=== PATIENT | female | born 1945 | race Caucasian/White ===

== ENCOUNTER 2022-03-16 17:47 | Emergency (ER) | payer MEDICARE ==
[~2022-03-16] VITALS: Ht 162.6 cm; Wt 90.3 kg
[~2022-03-16 17:47] MED LIST: Aspir 8181 MG PO; DICLOFENAC SOD100 G1 TP; DULO60 PO; GABA100 PO; METO25ER PO; NYAMYC15 G1 TOP; OMEGA-3 FISH O1 EAC6 PO; ROPINIROLE HCL PO; Toviaz4 MG PO; Ventolin/Prove6.7 GM INH; ZYRTEC10 M2 PO
[2022-03-16 18:42] LABS: BASOPHILS ABSOLUTE AUTO 0.03 K/mm3 (0.00-0.23); BASOPHILS PERCENT AUTO 1 % (0-2); EOSINOPHILS ABSOLUTE AUTO 0.08 K/mm3 (0.00-0.68); EOSINOPHILS PERCENT AUTO 1 % (0-6); Hemoglobin 9.3 g/dL (11.5-16.0); IMMATURE GRAN ABSOLUTE AUTO 0.01 K/mm3 (0.00-0.10); IMMATURE GRAN PERCENT AUTO 0 % (0-1); LYMPHOCYTES ABSOLUTE AUTO 1.88 K/mm3 (0.84-5.20); LYMPHOCYTES PERCENT AUTO 32 % (21-46); MONOCYTES ABSOLUTE AUTO 0.86 K/mm3 (0.16-1.47); MONOCYTES PERCENT AUTO 14 % (4-13); Mean Corpuscular HGB 28.3 pg (26.0-34.0); Mean Corpuscular HGB Conc 32.1 g/dL (31.5-36.5); Mean Corpuscular Volume 88 fL (80-100); Mean Platelet Volume 10.6 fL (9.1-12.4); NEUTROPHILS ABSOLUTE AUTO 3.11 K/mm3 (1.96-9.15); NEUTROPHILS PERCENT AUTO 52 % (41-73); Platelet Count 221 K/mm3 (150-400); RDW Coefficient Variation 14.7 % (11.7-14.2); RDW Standard Deviation 47.6 fL (35.1-46.3); Red Blood Cell Count 3.29 M/mm3 (3.80-5.20); White Blood Cell Count 5.97 K/mm3 (4.00-11.30)
[2022-03-16 19:24] LABS: Albumin, Blood 2.8 g/dL (3.4-5.0); Albumin/Globulin Ratio 0.7 (0.8-1.8); Bilirubin, Total 0.4 mg/dL (0.1-1.0); Bun/Creatinine Ratio 25.4 (12.0-20.0); Creatinine, Blood 1.14 mg/dL (0.40-1.00); Potassium, Blood 4.5 mmol/L (3.5-5.5); Total Protein, Blood 6.8 g/dL (6.4-8.2)
== END 2022-03-16 19:55 | disposition home or self-care (01) ==
LOC: ER 17:47
PROVIDERS: Physician Assistant
DX: R00.2 Palpitations (principal); I25.2 Old myocardial infarction; Z88.8 Allergy status to other drugs, medicaments and biological substances; Z79.82 Long term (current) use of aspirin; Z79.899 Other long term (current) drug therapy
CPT/HCPCS: 71046; 80053; 83690; 83880; 84484; 85025; 93005; 93010

== ENCOUNTER → 2022-03-30 | Outpatient (CLI) | payer MEDICARE ==
[2022-04-01 10:04] LABS: Stool Occult Blood Guaiac 1 Neg (Neg)
== END | disposition home or self-care (01) ==
LOC: LAB SHORT 19:00
PROVIDERS: Internal Medicine Nephrology
DX: N18.30 Chronic kidney disease, stage 3 unspecified (principal); D63.1 Anemia in chronic kidney disease
CPT/HCPCS: 82270

== ENCOUNTER 2022-04-27 16:49 | Inpatient (IN) | payer MEDICARE ==
[~2022-04-27] VITALS: Ht 162.6 cm; Wt 93.7 kg
[2022-04-27] MEDS ORDERED: FERSU300 PO (17:16)
[2022-04-27] MEDS ORDERED: FUROSEMIDE20 MG PO (17:17)
[2022-04-27] MEDS ORDERED: GABA100 PO (17:18)
[2022-04-27] MEDS ORDERED: GALANTAMINE ER24 M3 PO (17:18)
[2022-04-27] MEDS ORDERED: LORCET 5-325 M1 EACH PO (17:19)
[2022-04-27] MEDS ORDERED: LISINOPRIL2.5 MG PO (17:20)
[2022-04-27] MEDS ORDERED: ESCI20 PO (17:20)
[2022-04-27] MEDS ORDERED: METHIMAZOLE5 M1 PO (17:21)
[2022-04-27] MEDS ORDERED: ROSUVASTATIN CA20 MG PO (17:22)
[2022-04-27] MEDS ORDERED: PROLIA60 MG/1 ML SC (17:24)
[2022-04-27] MEDS ORDERED: FLONASE ALLERG9.9 M2 INH (17:25)
[2022-04-27 17:52] LABS: Albumin, Blood 3.3 g/dL (3.4-5.0); Albumin/Globulin Ratio 0.8 (0.8-1.8); Bilirubin, Total 0.2 mg/dL (0.1-1.0); Bun/Creatinine Ratio 26.5 (12.0-20.0); Creatinine, Blood 1.36 mg/dL (0.40-1.00); Potassium, Blood 7.4 mmol/L (3.5-5.5); Total Protein, Blood 7.3 g/dL (6.4-8.2)
[2022-04-27 19:00] LABS: Calcium, Ionized (POC) 1.15 mmol/L (1.10-1.46); Chloride (POC) 114 mmol/L (98-108); Creatinine (POC) 1.5 mg/dL (0.6-1.0); Glucose (ISTAT POC) 74 mg/dL (70-99); Hemoglobin (POC) 11.6 g/dL (12.0-16.0); Potassium (POC) 7.3 mmol/L (3.5-5.5); Sodium (POC) 136 mmol/L (135-148); Total CO2 (POC) 17 mmol/L (21-32)
[2022-04-27 21:09] LABS: BASOPHILS ABSOLUTE AUTO 0.03 K/mm3 (0.00-0.23); BASOPHILS PERCENT AUTO 1 % (0-2); EOSINOPHILS ABSOLUTE AUTO 0.19 K/mm3 (0.00-0.68); EOSINOPHILS PERCENT AUTO 3 % (0-6); Hemoglobin 9.9 g/dL (11.5-16.0); IMMATURE GRAN ABSOLUTE AUTO 0.01 K/mm3 (0.00-0.10); IMMATURE GRAN PERCENT AUTO 0 % (0-1); LYMPHOCYTES PERCENT AUTO 32 % (21-46); MONOCYTES ABSOLUTE AUTO 0.52 K/mm3 (0.16-1.47); MONOCYTES PERCENT AUTO 9 % (4-13); Mean Corpuscular HGB 27.9 pg (26.0-34.0); Mean Corpuscular Volume 93 fL (80-100); Mean Platelet Volume 10.8 fL (9.1-12.4); NEUTROPHILS ABSOLUTE AUTO 3.23 K/mm3 (1.96-9.15); NEUTROPHILS PERCENT AUTO 55 % (41-73); Platelet Count 220 K/mm3 (150-400); RDW Coefficient Variation 15.1 % (11.7-14.2); RDW Standard Deviation 52.1 fL (35.1-46.3); Red Blood Cell Count 3.55 M/mm3 (3.80-5.20); White Blood Cell Count 5.88 K/mm3 (4.00-11.30)
[2022-04-27 21:42] LABS: Thyroid Stimulating Hormone 10.4 uIU/mL (0.360-4.800)
[2022-04-27 21:44] LABS: Bun/Creatinine Ratio 24.4 (12.0-20.0); Calcium, Blood 7.8 mg/dL (8.5-10.1); Creatinine, Blood 1.23 mg/dL (0.40-1.00); Potassium, Blood 6.5 mmol/L (3.5-5.5)
[2022-04-28 02:00] LABS: Creatinine, Blood 1.28 mg/dL (0.40-1.00); Potassium, Blood 6.2 mmol/L (3.5-5.5)
[2022-04-28 05:41] LABS: Bun/Creatinine Ratio 22.8 (12.0-20.0); Calcium, Blood 8.2 mg/dL (8.5-10.1); Creatinine, Blood 1.36 mg/dL (0.40-1.00); Potassium, Blood 5.9 mmol/L (3.5-5.5)
--- NOTE | 2022-04-28 05:42 | NUR ---
SHIFT SUMMARY PATIENT ALERT AND ORIENTED X4. IS INCONTINENT AND USING PURWICK. NEEDS 1 ASSIST WHEN GETTING OUT OF BED. PATIENT HAD A PAUSE LASTING 2.11 SECONDS THIS MORNING. CURRENTLY, HEART RATE IS SINUS GILBERTO IN THE 50'S, BLOOD PRESSURE HYPERTENSIVE IN THE 160'S, PHYSICIAN AWARE. PATIENT DENIES ANY CHEST PAIN/PRESSURE AND SHORTNESS OF BREATH. LUNG SOUNDS CLEAR. PATIENT REPORTS THAT HER RECTUM DOESN'T FULLY CLOSE AND HAS LOOSE STOOLS AT BASELINE. PATIENT'S POTASSIUM IS TRENDING DOWN, TWO ONE TIME DOSES OF 40MG IV LASIX GIVEN PER DR DELUCA. PATIENT SLEPT WELL OVERNIGHT. CALL LIGHT WITHIN REACH.
[2022-04-28 09:15] LABS: Bun/Creatinine Ratio 24.2 (12.0-20.0); Calcium, Blood 8.1 mg/dL (8.5-10.1); Creatinine, Blood 1.32 mg/dL (0.40-1.00); Potassium, Blood 5.9 mmol/L (3.5-5.5)
[2022-04-28 09:22] LABS: Base Excess Venous -9.1 mmol/L; Bicarbonate Venous 17.4 mmol/L (24.0-30.0); PCO2 Venous 40.8 mmHg (38-42); pH Blood Venous 7.25 (7.34-7.37)
[2022-04-28 13:03] LABS: Base Excess Venous -6.1 mmol/L; Bicarbonate Venous 19.7 mmol/L (24.0-30.0); PCO2 Venous 37.6 mmHg (38-42); pH Blood Venous 7.33 (7.34-7.37)
[2022-04-28 13:36] LABS: Albumin, Blood 2.8 g/dL (3.4-5.0); Anion Gap 4 mmol/L (6-16); Blood Urea Nitrogen 32 mg/dL (8-24); Bun/Creatinine Ratio 25.8 (12.0-20.0); CO2, Blood 20 mmol/L (21-32); Calcium, Blood 8.2 mg/dL (8.5-10.1); Chloride, Blood 111 mmol/L (98-108); Creatinine, Blood 1.24 mg/dL (0.40-1.00); Free Thyroxine 0.76 ng/dL (0.70-1.60); Glomerular Filtration Rate 45 (60-); Glucose, Blood 141 mg/dL (70-99); Phosphorus, Blood 2.9 mg/dL (2.5-4.9); Potassium, Blood 5.5 mmol/L (3.5-5.5); Sodium, Blood 135 mmol/L (136-145)
--- NOTE | 2022-04-28 18:41 | NUR ---
PT SUMMARY: PT ALERT AND ORIENTED X4, ABLE TO MAKE NEEDS KNOWN. VITALS HRR SR 60-70'S, DENIES CHEST PAIN/PRESSURE FOR THE SHIFT, BP SYSTOLIC 140'S-160'S, PT TO RESTART HOME BP MEDS TOMORROW STARTED ON HCTZ TODAY AND SYNTHROID, SATS ABOVE 95% ON RA, AFEBRILE. PT HAS BEEN GETTING UP TO THE CHAIR AND COMMODE FOR TOILETING, WORKED WITH PHYSICAL THERAPIST 1PA FOR TRANSFERS. VBG WAS DONE TODAY AM VBG PH WAS 7.25 REPEAT ONE IN PM WENT UP TO 7.33, POTASSIUM STABLE AT 5.5, PT REMAINS ON LOKELMA. PT DENIES ANY PAIN/DISCOMFORT FOR THE REST OF THE SHIFT, RECEVIED PAIN MEDS THIS AM FROM NOC RN AND WAS EFFECTIVE T/O THE DAY. NO OTHER ISSUES ENCOUNTERED. PT NOW IN BED RESTING, REQUESTED NYSTATIN POWDER FOR RASH IN THE PANUS, POWDER ADMINISTERED. CALL LIGHTS IN REACH WILL REPORT TO ONCOMING SHIFT
[2022-04-29 04:15] LABS: BASOPHILS ABSOLUTE AUTO 0.03 K/mm3 (0.00-0.23); BASOPHILS PERCENT AUTO 1 % (0-2); EOSINOPHILS ABSOLUTE AUTO 0.18 K/mm3 (0.00-0.68); EOSINOPHILS PERCENT AUTO 3 % (0-6); Hematocrit 27.6 % (33.0-51.0); Hemoglobin 8.8 g/dL (11.5-16.0); IMMATURE GRAN PERCENT AUTO 0 % (0-1); LYMPHOCYTES ABSOLUTE AUTO 1.82 K/mm3 (0.84-5.20); LYMPHOCYTES PERCENT AUTO 29 % (21-46); MONOCYTES ABSOLUTE AUTO 0.65 K/mm3 (0.16-1.47); MONOCYTES PERCENT AUTO 10 % (4-13); Mean Corpuscular HGB 27.8 pg (26.0-34.0); Mean Corpuscular HGB Conc 31.9 g/dL (31.5-36.5); Mean Platelet Volume 10.1 fL (9.1-12.4); NEUTROPHILS ABSOLUTE AUTO 3.59 K/mm3 (1.96-9.15); NEUTROPHILS PERCENT AUTO 57 % (41-73); Platelet Count 208 K/mm3 (150-400); RDW Coefficient Variation 15.1 % (11.7-14.2); RDW Standard Deviation 48.6 fL (35.1-46.3); Red Blood Cell Count 3.16 M/mm3 (3.80-5.20); White Blood Cell Count 6.27 K/mm3 (4.00-11.30)
[2022-04-29 04:44] LABS: Albumin, Blood 2.6 g/dL (3.4-5.0); Anion Gap 3 mmol/L (6-16); Blood Urea Nitrogen 38 mg/dL (8-24); CO2, Blood 22 mmol/L (21-32); Calcium, Blood 7.9 mg/dL (8.5-10.1); Chloride, Blood 109 mmol/L (98-108); Creatinine, Blood 1.31 mg/dL (0.40-1.00); Glomerular Filtration Rate 42 (60-); Glucose, Blood 109 mg/dL (70-99); Potassium, Blood 5.2 mmol/L (3.5-5.5); Sodium, Blood 134 mmol/L (136-145)
--- NOTE | 2022-04-29 04:55 | NUR ---
SHIFT SUMMARY: At the beginning of shift, patient complained of generalized pain and was noted to be hypertensive. Treated for pain and rechecked BP which came down from the 170s systolic to the 130s. BP tends to run in the 150s even at rest. She slept through most of the night comfortably.
[2022-04-29 05:16] LABS: Mean Corpuscular Volume 87 fL (80-100)
[2022-04-29 07:13] LABS: Base Excess Venous -4.5 mmol/L; Bicarbonate Venous 21.2 mmol/L (24.0-30.0); PCO2 Venous 32.5 mmHg (38-42)
--- NOTE | 2022-04-29 18:52 | NUR ---
END OF SHIFT NOTE PT IS A&O X4. VSS. NORMAL SINUS RHYTHM, HR 70s-90s, SPO2 >92% ON RA, PTS LLE WITH REDNESS NOTED. PARAMETER OUTLINED WITH MARKER AND CLARITA HOSE WAS PLACED. 2+ PITTING EDEMA IN BLE. PT IS RECEIVING NORCO PRN FOR PAIN IN SHOULDERS, BACK, AND LLE WITH PT REPORT OF IMPROVEMENT.
--- NOTE | 2022-04-29 19:59 | NUR ---
ASSUMPTION OF CARE THIS RN ASSUMED CARE OF PATIENT AT 1900. REPORT TAKEN FROM KAM MEDEL. PATIENT ALERT AND ORIENTED FULLY. CALM AND COOPERATIVE WITH CARE. VSS. REPORTS BACK/SHOULDER PAIN CHRONICALLY. HEATING PAD GIVEN TO PATIENT AND MEDICATING PER EMAR. DENIES CHEST PAIN/PRESSURE OR SOB. CLARITA HOSE REMOVED FROM BLE AFTER BEING PUT INTO BED. REDNESS NOTED AND MARKED BY PREVIOUS RN ON LLE; PT REPORTS PAIN AT TIMES IN LLE. PATIENT CALLING APPROPRIATELY AND ABLE TO MAKE NEEDS KNOWN. PUREWICK IN PLACE D/T FREQUENCY/URGENCY AND LASIX ADMINISTRATION. BED IN LOWEST POSITION AND CALL LIGHT WITHIN REACH.
[2022-04-30 04:34] LABS: Hematocrit 26.3 % (33.0-51.0); Hemoglobin 8.4 g/dL (11.5-16.0)
--- NOTE | 2022-04-30 04:51 | NUR ---
SHIFT SUMMARY NO ACUTE CHANGES OVERNIGHT. PATIENT WITH STABLE VITALS. LLE CONTINUES TO BE RED, EDEMATOUS AND PAINFUL TO TOUCH; BILAT CLARITA HOSE IN PLACE. PATIENT GIVEN MILK OF MAG DURING THIS SHIFT D/T NOT HAVING A BOWEL MOVEMENT FOR 2 DAYS. ACTIVE BS IN ALL FOUR QUADRANTS. PATIENT ALERT AND ORIENTED FULLY. ABLE TO MAKE NEEDS KNOWN. PUREWICK IN PLACE DRAINING YELLOW URINE. SBA WITH FWW TO BATHROOM. MEDICATING PER EMAR FOR PAIN. HEATING PADS ON SHOULDER AND BACK. BED IN LOWEST POSITION AND CALL LIGHT WITHIN REACH. THIS RN WILL CONTINUE TO MONITOR UNTIL SHIFT CHANGE AT 0700.
[2022-04-30 05:47] LABS: Albumin, Blood 2.5 g/dL (3.4-5.0); Anion Gap 4 mmol/L (6-16); Blood Urea Nitrogen 40 mg/dL (8-24); Bun/Creatinine Ratio 28.4 (12.0-20.0); CO2, Blood 24 mmol/L (21-32); Calcium, Blood 7.5 mg/dL (8.5-10.1); Chloride, Blood 107 mmol/L (98-108); Creatinine, Blood 1.41 mg/dL (0.40-1.00); Glomerular Filtration Rate 39 (60-); Glucose, Blood 99 mg/dL (70-99); Phosphorus, Blood 2.9 mg/dL (2.5-4.9); Potassium, Blood 4.8 mmol/L (3.5-5.5); Sodium, Blood 135 mmol/L (136-145)
[2022-04-30] MEDS ORDERED: DOXY100 PO (10:20)
[2022-04-30] MEDS ORDERED: HYDCHL25 PO (10:21)
[2022-04-30] MEDS ORDERED: LEVSOD75 PO (10:21)
[2022-04-30] MEDS ORDERED: VISBIOME 112.51 EACH PO (10:22)
--- NOTE | 2022-04-30 12:09 | NUR ---
DISCHARGE HOME PT MEDICAL NO TELE STATUS. A&O X4. VSS. SPO2 > 92% ON RA. PT W/ ORDERS FOR DISCHARGE HOME. MD VILLA W/ LULY FOR PG TO REMAIN IN PLACE UNTIL UPCOMING OUTPT LAB DRAW. DISCHARGE INSTRUCTIONS REVIEWED W/ PT & SENT HOME W/ PT. PT TAKEN OUT BY PCT IN WC @ APPROX 1210.
== END 2022-04-30 12:10 | disposition home or self-care (01) | DRG 641 ==
LOC: ER 16:49 → PCU 20:48
PROVIDERS: Emergency Medicine; Family Medicine; Family Medicine Adult Medicine; Student in an Organized Health Care Education/Training Program; ADMIT Internal Medicine
PROC: 4A133R1 Monitoring of Arterial Saturation, Peripheral, Percutaneous Approach (ICD-10-PCS; principal; 2022-04-27)
DX: E87.5 Hyperkalemia (principal); I13.0 Hypertensive heart and chronic kidney disease with heart failure and stage 1 through stage 4 chronic kidney disease, or unspecified chronic kidney disease; I50.32 Chronic diastolic (congestive) heart failure; L03.116 Cellulitis of left lower limb; L03.115 Cellulitis of right lower limb; R00.1 Bradycardia, unspecified; E03.9 Hypothyroidism, unspecified; G47.33 Obstructive sleep apnea (adult) (pediatric); I48.91 Unspecified atrial fibrillation; F03.90 Unspecified dementia, unspecified severity, without behavioral disturbance, psychotic disturbance, mood disturbance, and anxiety; E87.1 Hypo-osmolality and hyponatremia; D64.9 Anemia, unspecified; E87.4 Mixed disorder of acid-base balance; N18.30 Chronic kidney disease, stage 3 unspecified; M81.0 Age-related osteoporosis without current pathological fracture; F32.A Depression, unspecified; I25.2 Old myocardial infarction; Z88.8 Allergy status to other drugs, medicaments and biological substances; Z79.82 Long term (current) use of aspirin; Z79.899 Other long term (current) drug therapy
CPT/HCPCS: 36415; 71046; 80047; 80048; 80053; 80069; 82803; 83735; 83880; 84439; 84443; 84484; 85014; 85018; 85025; 93005; 93010; 94760; 96374; 96375; 97110; 97162; 97530; 99285-25; A9270; C1751; J0610; J0690; J1650; J1815; J1940; J7040; J7799

== ENCOUNTER → 2022-05-26 | Outpatient (CLI) | payer MEDICARE, OTHER ==
[~2022-05-26] MED LIST changes: +DOXY100 PO; +ESCI20 PO; +FERSU300 PO; +FLONASE ALLERG9.9 M2 INH; +FUROSEMIDE20 MG PO; +GALANTAMINE ER24 M3 PO; +HYDCHL25 PO; +LEVSOD75 PO; +LISINOPRIL2.5 MG PO; +LORCET 5-325 M1 EACH PO; +METHIMAZOLE5 M1 PO; +PROLIA60 MG/1 ML SC; +ROSUVASTATIN CA20 MG PO; +VISBIOME 112.51 EACH PO
[2022-05-26 14:59] LABS: Magnesium, Blood 2.2 mg/dL (1.6-2.4)
[2022-05-26 15:05] LABS: Bun/Creatinine Ratio 26.4 (12.0-20.0); Creatinine, Blood 1.25 mg/dL (0.40-1.00); Potassium, Blood 4.6 mmol/L (3.5-5.5)
== END | disposition home or self-care (01) ==
LOC: LAB 12:55 → LAB SHORT 12:55
PROVIDERS: Family Medicine
DX: N18.9 Chronic kidney disease, unspecified (principal)
CPT/HCPCS: 80048; 83735

== ENCOUNTER 2022-06-27 00:28 | Observation (INO) | payer MEDICARE, OTHER ==
[~2022-06-27] VITALS: Ht 160 cm; Wt 94.9 kg
[2022-06-27 02:06] LABS: BASOPHILS ABSOLUTE AUTO 0.03 K/mm3 (0.00-0.23); BASOPHILS PERCENT AUTO 0 % (0-2); EOSINOPHILS PERCENT AUTO 1 % (0-6); Hematocrit 33.4 % (33.0-51.0); Hemoglobin 10.4 g/dL (11.5-16.0); IMMATURE GRAN ABSOLUTE AUTO 0.11 K/mm3 (0.00-0.10); IMMATURE GRAN PERCENT AUTO 1 % (0-1); LYMPHOCYTES ABSOLUTE AUTO 0.44 K/mm3 (0.84-5.20); LYMPHOCYTES PERCENT AUTO 3 % (21-46); MONOCYTES ABSOLUTE AUTO 0.51 K/mm3 (0.16-1.47); MONOCYTES PERCENT AUTO 3 % (4-13); Mean Corpuscular HGB 27.9 pg (26.0-34.0); Mean Corpuscular HGB Conc 31.1 g/dL (31.5-36.5); Mean Corpuscular Volume 90 fL (80-100); Mean Platelet Volume 11.7 fL (9.1-12.4); NEUTROPHILS ABSOLUTE AUTO 15.08 K/mm3 (1.96-9.15); NEUTROPHILS PERCENT AUTO 93 % (41-73); Platelet Count 148 K/mm3 (150-400); RDW Coefficient Variation 15.3 % (11.7-14.2); RDW Standard Deviation 50.5 fL (35.1-46.3); Red Blood Cell Count 3.73 M/mm3 (3.80-5.20); White Blood Cell Count 16.27 K/mm3 (4.00-11.30)
[2022-06-27 02:34] LABS: Albumin, Blood 3.1 g/dL (3.4-5.0); Albumin/Globulin Ratio 0.8 (0.8-1.8); Bilirubin, Total 0.5 mg/dL (0.1-1.0); Bun/Creatinine Ratio 30.6 (12.0-20.0); Calcium, Blood 8.7 mg/dL (8.5-10.1); Creatinine, Blood 1.11 mg/dL (0.40-1.00); Globulin, Blood 3.7 g/dL (2.2-4.0); Total Protein, Blood 6.8 g/dL (6.4-8.2)
[2022-06-27] MEDS ORDERED: COLCHICINE0.6 MG PO (04:42)
[2022-06-27] MEDS ORDERED: NITR100CA PO (04:43)
[2022-06-27] MEDS ORDERED: FENTANYL1 EA12 TOP (04:45)
[2022-06-27 05:11] LABS: BASOPHILS ABSOLUTE AUTO 0.03 K/mm3 (0.00-0.23); BASOPHILS PERCENT AUTO 0 % (0-2); EOSINOPHILS PERCENT AUTO 1 % (0-6); Hematocrit 28.6 % (33.0-51.0); IMMATURE GRAN ABSOLUTE AUTO 0.07 K/mm3 (0.00-0.10); IMMATURE GRAN PERCENT AUTO 1 % (0-1); LYMPHOCYTES ABSOLUTE AUTO 0.73 K/mm3 (0.84-5.20); LYMPHOCYTES PERCENT AUTO 5 % (21-46); MONOCYTES ABSOLUTE AUTO 0.66 K/mm3 (0.16-1.47); MONOCYTES PERCENT AUTO 5 % (4-13); Mean Corpuscular HGB Conc 31.5 g/dL (31.5-36.5); Mean Corpuscular Volume 89 fL (80-100); Mean Platelet Volume 10.7 fL (9.1-12.4); NEUTROPHILS ABSOLUTE AUTO 12.96 K/mm3 (1.96-9.15); NEUTROPHILS PERCENT AUTO 89 % (41-73); Platelet Count 144 K/mm3 (150-400); RDW Coefficient Variation 15.1 % (11.7-14.2); RDW Standard Deviation 48.6 fL (35.1-46.3); Red Blood Cell Count 3.22 M/mm3 (3.80-5.20); White Blood Cell Count 14.55 K/mm3 (4.00-11.30)
[2022-06-27 05:46] LABS: Albumin, Blood 2.7 g/dL (3.4-5.0); Albumin/Globulin Ratio 0.8 (0.8-1.8); Bilirubin, Total 0.4 mg/dL (0.1-1.0); Bun/Creatinine Ratio 32.1 (12.0-20.0); Calcium, Blood 8.3 mg/dL (8.5-10.1); Creatinine, Blood 1.12 mg/dL (0.40-1.00); Globulin, Blood 3.2 g/dL (2.2-4.0); Potassium, Blood 4.1 mmol/L (3.5-5.5); Total Protein, Blood 5.9 g/dL (6.4-8.2)
[2022-06-27 06:10] LABS: Influenza A, PCR NEGATIVE (NEGATIVE); Influenza B, PCR NEGATIVE (NEGATIVE); Resp Syncytial Virus, PCR NEGATIVE (NEGATIVE); SARS-Cov-2 (COVID-19) PCR, MMC NEGATIVE (NEGATIVE)
--- NOTE | 2022-06-27 06:21 | NUR ---
ARRIVAL TO PCU/SHIFT SUMMARY PT ARRIVED TO PCU AT APPROXIMATELY 0420. PT SLID OVER FROM ER GURNEY TO HOSPITAL BED BY 4 CLINICAL STAFF MEMBERS. PT A&Ox4, CALLS AND COMMUNICATES NEEDS APPROPRIATELY. ORIENTED PT TO CALL LIGHT, BED IN LOWEST POSITION, BED ALARM ON. BP STABLE, SINUS 60's. PT REPORTS MILD CP IN LOWER LEFT RIBS WHEN TAKING DEEP BREATHES. PT ARRIVED ON 2L VIA NC, SpO2 98%. WHEN SLEEPING SpO2 89-91%, PLACED PT BACK ON 2L VIA NC. DENIES SOB. INCONTINENT OF URINE, PT REQUESTED USING PUREWICK. NO OTHER EVENTS, WILL REPORT TO ONCOMING RN.
--- NOTE | 2022-06-27 07:58 | NUR ---
ASSUMPTION OF CARE: PATIENT IS RESTING IN BED PEACEFULLY ON 2 L VIA NC. SPO2 IS >96%. PATIENT DESATURATES WHILE SLEEPING WITHOUT O2. PATIENT WHEN EVALUATED ENDORSED MINIMAL CHEST PAIN THAT WORSENS WITH BREATHING. ACKNOWELDGE ORDER FROM NIGHT HOSPITALIST FOR CT PE. WILL CONTINUE TO MONITOR CHANGES OR WORSENING SYMPTOMS. PATIENT IS NORMOTENSIVE, AFEBRILE. A/O X 4. POWERGLIDE IS INFUSING 75 NS WITH NO OBVIOUS ISSUE. PLACED EARLY THIS AM. PATIENT HAS A POWERGLIDE IN PLACE. ENDORSES REPOSITIONING AT A MINIMUM OF Q2 FOR PREVENTION OF WORSENING COCCYX. PATIENT IS PLEASANT AND COOPERATES WITH STAFF WELL. WILL CONTINUE TO MONITOR AND WILL CALL AND UPDATE FAMILY WITH RESULTS OF CT PE. IMAGING ALREADY HAS CALLED TO ASK THIS INSPECTOR TECHNICIAN QUESTIONS. NO GOALS OR QUESTIONS FROM PATIENT AT THIS TIME. RN GOALS FOR PATIENT IS INCREASED ABILITY WITH MOVEMENT, FOR PREVENTION OF NEW/WORSENING PNA AND DECREASED RISK FOR DVT WITH EARLY AMBULATION.
--- NOTE | 2022-06-27 19:11 | NUR ---
END OF SHIFT: ONLY CHANGES FROM ASSUMPTION OF CARE ARE: PATIENT WAS - FOR CT PE PLEASE SEE REST OF RESULTS. PATIENT HAS BEEN IMPROVED PHYSICALLY. DENIES CHEST PAIN PRESSURE OR SOB. STILL NO ACUTE DISTRESS OF ANY KIND, EARLY AMBULATION ABLE TO USE THE BATHROOM. FWW 1 PERSON ASSIST. INFUSING 75NS STILL PATIENT HAS BEEN ON AND OFF DUE TO SAFETY. PATIENT HAD GREAT OUTPUT AND INPUT TODAY. NO CONCERNS FROM THIS RN AT THIS TIME
[2022-06-28 04:40] LABS: BASOPHILS ABSOLUTE AUTO 0.01 K/mm3 (0.00-0.23); BASOPHILS PERCENT AUTO 0 % (0-2); EOSINOPHILS ABSOLUTE AUTO 0.19 K/mm3 (0.00-0.68); EOSINOPHILS PERCENT AUTO 2 % (0-6); Hematocrit 29.7 % (33.0-51.0); Hemoglobin 9.4 g/dL (11.5-16.0); IMMATURE GRAN ABSOLUTE AUTO 0.04 K/mm3 (0.00-0.10); IMMATURE GRAN PERCENT AUTO 0 % (0-1); LYMPHOCYTES ABSOLUTE AUTO 0.84 K/mm3 (0.84-5.20); LYMPHOCYTES PERCENT AUTO 8 % (21-46); MONOCYTES ABSOLUTE AUTO 0.56 K/mm3 (0.16-1.47); MONOCYTES PERCENT AUTO 5 % (4-13); Mean Corpuscular HGB 27.8 pg (26.0-34.0); Mean Corpuscular HGB Conc 31.6 g/dL (31.5-36.5); Mean Corpuscular Volume 88 fL (80-100); Mean Platelet Volume 10.8 fL (9.1-12.4); NEUTROPHILS ABSOLUTE AUTO 9.34 K/mm3 (1.96-9.15); NEUTROPHILS PERCENT AUTO 85 % (41-73); Platelet Count 147 K/mm3 (150-400); RDW Coefficient Variation 15.1 % (11.7-14.2); RDW Standard Deviation 48.7 fL (35.1-46.3); Red Blood Cell Count 3.38 M/mm3 (3.80-5.20); White Blood Cell Count 10.98 K/mm3 (4.00-11.30)
[2022-06-28 04:58] LABS: Bun/Creatinine Ratio 25.7 (12.0-20.0); Calcium, Blood 8.7 mg/dL (8.5-10.1); Creatinine, Blood 0.97 mg/dL (0.40-1.00); Potassium, Blood 4.3 mmol/L (3.5-5.5)
[2022-06-28 13:28] LABS: Bun/Creatinine Ratio 27.1 (12.0-20.0); Calcium, Blood 8.4 mg/dL (8.5-10.1); Creatinine, Blood 0.96 mg/dL (0.40-1.00); Potassium, Blood 4.2 mmol/L (3.5-5.5)
--- NOTE | 2022-06-28 13:30 | NUR ---
PT TRANSFERRED TO ROOM 209. STITCH RUBBER KADE GAVE REPORT TO 209 LIZY MACK ASSISTED WITH TRANSFERRING PT TO 209.
--- NOTE | 2022-06-28 13:31 | NUR ---
Upon receiving a referral for spiritual care, I visited the patient. Patient's dtr, Tata is present at the beginning of the vist but most of the conversation was just with the patient. Pt is quite pleasant and talks about her life at the [facility] and the friendlinesss of the staff and her fellow residents. She talks about her sister's mei with cancer, her other siblings and her children. 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 I reinforce helpful attitudes and practices, and provide therapeutic listening and prayer. She reponded well and showed signs of being encouraged in her jah. I will continue to remain available to patient and family.
--- NOTE | 2022-06-28 13:40 | NUR ---
transfer: PT TO ROOM 209 FROM PCU 16. PT A+O. DENIES PAIN AT THIS TIME. FENTANYL PATCH IN PLACE. PT DENIES SOB AT THIS TIME. DYSPNEA NOTED WITH EXERTION. SATS STABLE ON RA. DRY COUGH. CRACKLES TO BL BASES. SPUTUM CUP PLACED AT BEDSIDE FOR NEEDED SAMPLE. +1 EDEMA TO BLE. PULL UP IN PLAVE FOR OCCASIONAL LEAKAGE. PT DOES NOT WANT PUREWICK AT THIS TIME PREVIOUSLY WAS USING IN PCU. BSC PLACED AT BEDSIDE. MEPILEX TO COCCYX, PREVENTATIVE. HR OCCASIONALLY IRREGULAR. DENIES CP. CALL LIGHT PLACED IN REACH. WILL CONT TO MONITOR AND TREAT.
--- NOTE | 2022-06-28 18:05 | NUR ---
PT HAS BEEN STABLE SINCE TRANSFER. AFEBRILE. PT HAS BEEN SR WITH OCCASIONAL PVC'S ON TELE. DENIES CP. DENIES SOB. DRY COUGH. CRACKLES IN LUNG BASES. PT VOIDING WELL. LASIX ORDERED THIS EVENING. PUREWICK SET UP IN ROOM PATIENT USES DURING THE NOC AT HOME. PT HAS HAD 2 STOOLS THIS SHIFT, LOOSE. PREVENTATIVE MEPILEX IN PLACE. FENT PATCH REPORTED EFFECTIVE FOR PAIN. TOLERATING DIET. PT USES CALL LIGHT APPROPRIATELY. PT EXPRESSES DESIRE TO DC HOME TOMORROW.
[2022-06-29 06:41] LABS: BASOPHILS ABSOLUTE AUTO 0.01 K/mm3 (0.00-0.23); BASOPHILS PERCENT AUTO 0 % (0-2); EOSINOPHILS ABSOLUTE AUTO 0.19 K/mm3 (0.00-0.68); EOSINOPHILS PERCENT AUTO 3 % (0-6); Hematocrit 30.7 % (33.0-51.0); Hemoglobin 9.7 g/dL (11.5-16.0); IMMATURE GRAN ABSOLUTE AUTO 0.05 K/mm3 (0.00-0.10); IMMATURE GRAN PERCENT AUTO 1 % (0-1); LYMPHOCYTES ABSOLUTE AUTO 1.08 K/mm3 (0.84-5.20); LYMPHOCYTES PERCENT AUTO 19 % (21-46); MONOCYTES ABSOLUTE AUTO 0.39 K/mm3 (0.16-1.47); MONOCYTES PERCENT AUTO 7 % (4-13); Mean Corpuscular HGB 27.6 pg (26.0-34.0); Mean Corpuscular HGB Conc 31.6 g/dL (31.5-36.5); Mean Corpuscular Volume 88 fL (80-100); Mean Platelet Volume 10.9 fL (9.1-12.4); NEUTROPHILS ABSOLUTE AUTO 4.11 K/mm3 (1.96-9.15); NEUTROPHILS PERCENT AUTO 70 % (41-73); Platelet Count 171 K/mm3 (150-400); RDW Coefficient Variation 15.1 % (11.7-14.2); RDW Standard Deviation 48.3 fL (35.1-46.3); Red Blood Cell Count 3.51 M/mm3 (3.80-5.20); White Blood Cell Count 5.83 K/mm3 (4.00-11.30)
[2022-06-29 07:03] LABS: Albumin, Blood 2.5 g/dL (3.4-5.0); Albumin/Globulin Ratio 0.7 (0.8-1.8); Bilirubin, Total 0.3 mg/dL (0.1-1.0); Bun/Creatinine Ratio 25.4 (12.0-20.0); Calcium, Blood 8.5 mg/dL (8.5-10.1); Creatinine, Blood 1.14 mg/dL (0.40-1.00); Globulin, Blood 3.8 g/dL (2.2-4.0); Potassium, Blood 4.7 mmol/L (3.5-5.5); Total Protein, Blood 6.3 g/dL (6.4-8.2)
--- NOTE | 2022-06-29 07:26 | NUR ---
PT VSS T/O NIGHT; HR SINUS 80'S, PT DID HAVE 1 "DROP BEAT" EARLY THIS AM WHILE SLEEPING PER TELE MONITOR, PT REMAINED ASYMPTOMATIC. SATS >90% ON RA, PT HAD 1 PRN RT TX, DECLINED NEED FOR ADDITIONAL TX. COUGH BECOMING PRODUCTIVE, SPUTUM SAMPLE SENT THIS AM. PT INCONTINENT OF URINE, PUREWICK IN PLACE, ATTENDS CHANGED PRN. PT PLEASANT, REP HAVING SLEPT WELL. DAUGHTER IN ROOM THIS AM.
--- NOTE | 2022-06-29 08:00 | NUR ---
MORNING NOTE PT IS AXO4. SEE DOCUMENTED COMPLETE ASSESSMENT. PT UP W/ 1 ASSIST TO CHAIR, ABLE TO PARTICIPATE DURING ACTS OF CARE. PUREWICK IN PLACE. MORNING MEDICATIONS ADMINISTERED PER EMAR W/ APPLESAUCE. PT REPORTS THAT PAIN IS TOLERABLE @ THIS TIME. PT STATES THAT "SHE FEELS BETTER TODAY." PT HAS HX OF AFIB, CURRENTLY IN SINUS RHYTHM W/ BBB HR OF 60 PER SCANNED RHYTHM STRIP. MORNING ROUNDING, PLAN IS TO DC BACK TO ASSISTED LIVING TODAY. IV ABX INFUSING AT THIS TIME. PERSONAL ITEMS & CALL LIGHT WITHIN REACH.
--- NOTE | 2022-06-29 11:36 | NUR ---
Patient is sitting up in bed and in great spirits today. She explains about the plans to d/c her to [facility] within a few hours. She then shares about her family, her career and the joys of being a grandparent. She brings warmth and light to the conversation and shows no signs of distress or concerns.
[2022-06-29] MEDS ORDERED: CEFD300 PO (11:59)
[2022-06-29] MEDS ORDERED: Furosemide20 MG PO (12:00)
[2022-06-29] MEDS ORDERED: HYDROCODONE-AC1 EA10 PO (12:04)
--- NOTE | 2022-06-29 13:05 | NUR ---
DISCHARGE PT IS AOX4, ABLE TO COMMUNICATE NEEDS & UNDERSTAND INSTRUCTION. DAUGHTER IS FREQUENTLY AT BEDSIDE, ADVOCATING FOR & SUPPORTING PT. PT IS BACK AT BASELINE AMBULATION STATUS, SBA ASSIST W/ FWW. PAIN IS TOLERABLE W/ PRESCRIBED MEDICATIONS. BREATHING & OTHER S/S OF PNEUMONIA HAVE IMPROVED. PT IS DCING HOME W/ HH, BOTH PT & DAUGHTER AGREE W/ PLAN. PT TRANSFERRED TO VEHICLE VIA WC.
== END 2022-06-29 12:45 | disposition home health service (06) ==
LOC: ER 00:28 → PCU 00:29 → SURS 04:14 → PCU 04:14 → SURS 06-28 13:17
PROVIDERS: Family Medicine; Student in an Organized Health Care Education/Training Program; ADMIT Internal Medicine
DX: A41.9 Sepsis, unspecified organism (principal); J18.9 Pneumonia, unspecified organism; F32.A Depression, unspecified; E03.9 Hypothyroidism, unspecified; I50.30 Unspecified diastolic (congestive) heart failure; J96.01 Acute respiratory failure with hypoxia; Z20.822 Contact with and (suspected) exposure to COVID-19
CPT/HCPCS: 0241U; 36415; 71046; 71260; 80048; 80053; 83605; 83880; 84484; 85025; 85379; 93005; 93010; 94640; 94664; 94760; 94762; 96365-59; 96375-59; 99285-25; A9270; J0456; J0696; J1650; J1940; J3010; J7030; J7050; Q9967

== ENCOUNTER 2022-07-15 21:31 | Emergency (ER) | payer MEDICARE, OTHER ==
[~2022-07-15] VITALS: Ht 160 cm; Wt 93.0 kg
[~2022-07-15 21:31] MED LIST changes: +CEFD300 PO; +COLCHICINE0.6 MG PO; +FENTANYL1 EA12 TOP; +Furosemide20 MG PO; +HYDROCODONE-AC1 EA10 PO; +NITR100CA PO
[2022-07-15 22:21] LABS: BASOPHILS ABSOLUTE AUTO 0.06 K/mm3 (0.00-0.23); BASOPHILS PERCENT AUTO 1 % (0-2); EOSINOPHILS ABSOLUTE AUTO 0.18 K/mm3 (0.00-0.68); EOSINOPHILS PERCENT AUTO 3 % (0-6); Hematocrit 32.4 % (33.0-51.0); Hemoglobin 10.2 g/dL (11.5-16.0); IMMATURE GRAN ABSOLUTE AUTO 0.01 K/mm3 (0.00-0.10); IMMATURE GRAN PERCENT AUTO 0 % (0-1); LYMPHOCYTES ABSOLUTE AUTO 1.54 K/mm3 (0.84-5.20); LYMPHOCYTES PERCENT AUTO 24 % (21-46); MONOCYTES ABSOLUTE AUTO 0.75 K/mm3 (0.16-1.47); MONOCYTES PERCENT AUTO 12 % (4-13); Mean Corpuscular HGB 27.3 pg (26.0-34.0); Mean Corpuscular HGB Conc 31.5 g/dL (31.5-36.5); Mean Corpuscular Volume 87 fL (80-100); Mean Platelet Volume 10.3 fL (9.1-12.4); NEUTROPHILS ABSOLUTE AUTO 3.76 K/mm3 (1.96-9.15); NEUTROPHILS PERCENT AUTO 60 % (41-73); Platelet Count 329 K/mm3 (150-400); RDW Coefficient Variation 14.9 % (11.7-14.2); RDW Standard Deviation 47.6 fL (35.1-46.3); Red Blood Cell Count 3.73 M/mm3 (3.80-5.20)
[2022-07-15 22:46] LABS: Albumin, Blood 3.2 g/dL (3.4-5.0); Albumin/Globulin Ratio 0.8 (0.8-1.8); Bilirubin, Total 0.2 mg/dL (0.1-1.0); Bun/Creatinine Ratio 33.9 (12.0-20.0); Calcium, Blood 8.8 mg/dL (8.5-10.1); Creatinine, Blood 1.27 mg/dL (0.40-1.00); Globulin, Blood 4.2 g/dL (2.2-4.0); Potassium, Blood 4.5 mmol/L (3.5-5.5); Total Protein, Blood 7.4 g/dL (6.4-8.2)
[2022-07-16 00:52] LABS: Source, Urine Clean Catch
[2022-07-16 01:08] LABS: Bilirubin, Urine Neg (Neg); Blood, Urine Neg (Neg); Glucose Qualitative, Urine Neg (Neg); Ketones, Urine Neg (Neg); Leukocyte Esterase, Urine 3+ (Neg); Nitrite, Urine Neg (Neg); Protein, Urine 1+ (Neg); Specific Gravity, Urine 1.015 (1.003-1.022); Urobilinogen, Urine NORM (Normal)
[2022-07-16 01:38] LABS: Appearance, Urine Hazy (Clear); Color, Urine Yellow (P-Yellow)
[2022-07-16 01:43] LABS: Bacteria Mod /hpf; Red Blood Cells, Urine 0-2 /hpf (0-2); Squamous Epithelial Cells Mod /hpf (Few)
[2022-07-16 03:30] VITALS: BP 150/53
== END 2022-07-16 03:58 | disposition home or self-care (01) ==
LOC: ER 21:31
PROVIDERS: Student in an Organized Health Care Education/Training Program
DX: I95.9 Hypotension, unspecified (principal); R55 Syncope and collapse; D64.9 Anemia, unspecified; Z88.8 Allergy status to other drugs, medicaments and biological substances; Z79.899 Other long term (current) drug therapy; Z79.891 Long term (current) use of opiate analgesic; I25.2 Old myocardial infarction; I50.9 Heart failure, unspecified; I11.0 Hypertensive heart disease with heart failure; E03.9 Hypothyroidism, unspecified; G47.33 Obstructive sleep apnea (adult) (pediatric); I48.91 Unspecified atrial fibrillation
CPT/HCPCS: 36415; 71046; 80053; 81001; 83690; 84484; 85025; 93005; 93010; 99284-25

== ENCOUNTER → 2022-08-17 | Outpatient (CLI) | payer MEDICARE, OTHER ==
[2022-08-17 16:31] LABS: Bun/Creatinine Ratio 24.8 (12.0-20.0); Calcium, Blood 8.7 mg/dL (8.5-10.1); Creatinine, Blood 1.13 mg/dL (0.40-1.00); Potassium, Blood 4.5 mmol/L (3.5-5.5)
== END | disposition home or self-care (01) ==
LOC: LAB SHORT 16:23
PROVIDERS: Physician Assistant Medical
DX: R60.9 Edema, unspecified (principal)
CPT/HCPCS: 80048

== ENCOUNTER → 2022-10-27 | Outpatient (CLI) | payer OTHER ==
[2022-10-27 13:34] LABS: Source, Urine Clean Catch
[2022-10-27 15:34] LABS: Appearance, Urine Clear (Clear); Bilirubin, Urine Neg (Neg); Blood, Urine Neg (Neg); Glucose Qualitative, Urine Neg (Neg); Ketones, Urine Neg (Neg); Leukocyte Esterase, Urine Neg (Neg); Nitrite, Urine Neg (Neg); Protein, Urine Neg (Neg); Urobilinogen, Urine NORM (Normal); pH, Urine 6.5 (5.0-8.0)
[2022-10-27 16:03] LABS: Color, Urine Pale Yellow (P-Yellow)
== END | disposition home or self-care (01) ==
LOC: LAB SHORT 12:20 → LAB 12:20
PROVIDERS: Internal Medicine
DX: N39.0 Urinary tract infection, site not specified (principal)
CPT/HCPCS: 81003

== ENCOUNTER 2022-11-02 21:37 | Emergency (ER) | payer MEDICARE, OTHER ==
[~2022-11-02] VITALS: Ht 162.6 cm; Wt 90.3 kg
[2022-11-02 21:37] VITALS: BP 137/66
== END 2022-11-02 22:32 | disposition home or self-care (01) ==
LOC: ER 21:37
DX: H11.32 Conjunctival hemorrhage, left eye (principal); I25.2 Old myocardial infarction; I11.0 Hypertensive heart disease with heart failure; I50.9 Heart failure, unspecified; E03.9 Hypothyroidism, unspecified; Z88.8 Allergy status to other drugs, medicaments and biological substances; Z79.899 Other long term (current) drug therapy
CPT/HCPCS: 99282

== ENCOUNTER → 2022-11-21 | Outpatient (CLI) | payer MEDICARE, OTHER | END | disposition home or self-care (01) | LOC: LAB SHORT 12:02 → LAB 12:02 | DX: N39.0 Urinary tract infection, site not specified (principal) | CPT/HCPCS: 87077; 87086; 87186 ==

== ENCOUNTER 2023-02-14 12:09 | Day surgery (SDC) | payer OTHER ==
[~2023-02-14] VITALS: Ht 162.6 cm; Wt 90.5 kg
[2023-02-14] MEDS ORDERED: ALLOPURINOL100 M1 PO (13:06)
[2023-02-14] MEDS ORDERED: Ventolin/Prove6.7 GM INH (13:06)
[2023-02-14] MEDS ORDERED: CARVEDILOL3.125 MG PO (13:24)
[2023-02-14] MEDS ORDERED: FENTANYL1 EAC9 TOP (13:27)
[2023-02-14] MEDS ORDERED: FENTANYL1 EA20 TOP (13:31)
[2023-02-14] MEDS ORDERED: PERIDEX15 ML (13:40)
[2023-02-14] MEDS ORDERED: GUAI200 (13:41)
[2023-02-14] MEDS ORDERED: LOPERAMIDE212 (13:42)
[2023-02-14] MEDS ORDERED: METHI10 (13:43)
[2023-02-14] MEDS ORDERED: Loratadine10 MG (13:43)
[2023-02-14] MEDS ORDERED: NYSTATIN (13:44)
[2023-02-14] MEDS ORDERED: Percocet 5-3251 EACH (13:45)
[2023-02-14] MEDS ORDERED: PROLIA60 MG/1 ML (13:46)
[2023-02-14] MEDS ORDERED: MIRALAX17 GM (13:46)
[2023-02-14] MEDS ORDERED: ZINC OXIDE57 GM (13:47)
[2023-02-14] MEDS ORDERED: SYSTANE GEL10 GM (13:48)
[2023-02-14] MEDS ORDERED: TORSE20 (13:48)
[2023-02-14] MEDS ORDERED: SENNA LAXATIVE8.6 MG (13:48)
[2023-02-14] MEDS ORDERED: FENTANYL1 EA10 TD (14:19)
--- NOTE | 2023-02-14 14:59 | NUR ---
02/14/23 1459 Jovana Mccloud BLOCK COMPLETE IN OR BY LANETTE YUAN CRNA. PATIENT TOLERATED WELL, VSS.
[2023-02-14 15:22] VITALS: BP 136/65
--- NOTE | 2023-02-14 15:37 | NUR ---
02/14/23 1537 Denisha Alcala ASSESSED FINGERS ON OPERATIVE HAND, WHICH LOOKED TO BE SLIGHTLY BLUE. NARINDER LOOSENED BENITO WRAP TO DETERMINE IF THAT WOULD HELP.
== END 2023-02-14 16:02 | disposition home or self-care (01) ==
LOC: ORSCSDS 12:09
PROVIDERS: Orthopaedic Surgery
PROC: 01N50ZZ Release Median Nerve, Open Approach (ICD-10-PCS; principal; 2023-02-14 13:15)
DX: G56.03 Carpal tunnel syndrome, bilateral upper limbs (principal); I12.9 Hypertensive chronic kidney disease with stage 1 through stage 4 chronic kidney disease, or unspecified chronic kidney disease; N18.30 Chronic kidney disease, stage 3 unspecified; F32.A Depression, unspecified; E07.9 Disorder of thyroid, unspecified; D64.9 Anemia, unspecified; Z79.899 Other long term (current) drug therapy
CPT/HCPCS: A9270; J0690; J2250; J3010; J7120

== ENCOUNTER → 2023-02-21 | Outpatient (CLI) | payer OTHER ==
[~2023-02-21] MED LIST changes: +ALLOPURINOL100 M1 PO; +CARVEDILOL3.125 MG PO; +FENTANYL1 EA10 TD; +FENTANYL1 EA20 TOP; +FENTANYL1 EAC9 TOP; +GUAI200; +LOPERAMIDE212; +Loratadine10 MG; +METHI10; +MIRALAX17 GM; +NYSTATIN; +PERIDEX15 ML; +PROLIA60 MG/1 ML; +Percocet 5-3251 EACH; +SENNA LAXATIVE8.6 MG; +SYSTANE GEL10 GM; +TORSE20; +ZINC OXIDE57 GM
== END | disposition home or self-care (01) ==
LOC: LAB 17:10 → LAB SHORT 17:10
DX: L98.9 Disorder of the skin and subcutaneous tissue, unspecified (principal)
CPT/HCPCS: 87102

== ENCOUNTER 2023-05-16 10:40 | Day surgery (SDC) | payer OTHER ==
[~2023-05-16] VITALS: Ht 162.6 cm; Wt 87.2 kg
[~2023-05-16 10:40] MED LIST changes: +CHOLECALCIFEROL PO; +FLONASE ALLERG9.9 M2; -FLONASE ALLERG9.9 M2 INH; -GUAI200; -Loratadine10 MG; +Loratadine10 MG PO; +MIRALAX17 GM PO; +Mucus Relief400 MG PO; +NYSTATIN CREAM TOP; -PROLIA60 MG/1 ML; -SENNA LAXATIVE8.6 MG; +SENNA LAXATIVE8.6 MG PO; -TORSE20; +TORSE20 PO
[2023-05-16] MEDS ORDERED: Lidocaine 1%-Epineph 1:100000 20 ML MDV ONE (10:42)
[2023-05-16] MEDS ORDERED: Lidocaine 2%-Epineph 1:200000 20 ML SDV ONE (10:42)
[2023-05-16] MEDS ORDERED: Midazolam HCl 1MG / ML 2ML Vial ONE ×2 (10:48→12:29)
[2023-05-16] MEDS ORDERED: TALTZ AUTO80 MG/1 M1 SC (11:38)
[2023-05-16] MEDS ORDERED: Lactated Ringer's 1,000 ML IV ONE (11:45)
[2023-05-16] MEDS ORDERED: CeFAZolin Sodium 2,000 MG VIAL ONE (11:49)
[2023-05-16] MEDS ORDERED: NS 50 ML IV ONE (11:49)
[2023-05-16] MEDS ORDERED: Lidocaine HCl/Pf 1% 5 ML VIAL ONE (11:54)
--- NOTE | 2023-05-16 12:30 | NUR ---
05/16/23 [facility] PRIOR TO BLOCK PROCEDURE WITH DR RITTER
[2023-05-16 13:17] VITALS: BP 122/56
== END 2023-05-16 13:48 | disposition home or self-care (01) ==
LOC: ORSCSDS 10:40
PROVIDERS: Orthopaedic Surgery
PROC: 01N50ZZ Release Median Nerve, Open Approach (ICD-10-PCS; principal; 2023-05-16 12:15)
DX: G56.02 Carpal tunnel syndrome, left upper limb (principal); G47.33 Obstructive sleep apnea (adult) (pediatric); I48.91 Unspecified atrial fibrillation; E03.9 Hypothyroidism, unspecified; I12.9 Hypertensive chronic kidney disease with stage 1 through stage 4 chronic kidney disease, or unspecified chronic kidney disease; N18.9 Chronic kidney disease, unspecified; Z79.899 Other long term (current) drug therapy
CPT/HCPCS: J0690; J2001; J2250

== ENCOUNTER → 2023-12-28 | Outpatient (CLI) | payer MEDICARE, OTHER ==
[~2023-12-28] MED LIST changes: +ATACAND HCT 321 EACH; +DESITIN DAILY136 GM; +DOCU100; +GALA4; +LOPE2C; +OMEP20ER; +SYSTANE 0.4-0.315 ML; +TALTZ AUTO80 MG/1 M1 SC
[2023-12-28 13:47] LABS: Source, Urine Voided
[2023-12-28 15:18] LABS: Appearance, Urine Clear (Clear); Bilirubin, Urine Neg (Neg); Blood, Urine Neg (Neg); Glucose Qualitative, Urine Neg (Neg); Ketones, Urine Neg (Neg); Leukocyte Esterase, Urine 1+ (Neg); Nitrite, Urine Pos (Neg); Protein, Urine Neg (Neg); Urobilinogen, Urine NORM (Normal); pH, Urine 6.5 (5.0-8.0)
[2023-12-28 15:37] LABS: Color, Urine Pale Yellow (P-Yellow)
[2023-12-28 15:38] LABS: Bacteria Many /hpf; Red Blood Cells, Urine 0-2 /hpf (0-2); Squamous Epithelial Cells Few /hpf (Few)
== END ==
LOC: LAB SHORT 13:45 → LAB 13:45
PROVIDERS: Internal Medicine
DX: N39.0 Urinary tract infection, site not specified (principal)
CPT/HCPCS: 81001; 87077; 87086; 87186

== ENCOUNTER 2024-01-03 14:30 | Emergency (ER) | payer MEDICARE, OTHER ==
[~2024-01-03] VITALS: Ht 162.6 cm; Wt 93.0 kg
[2024-01-03] MEDS ORDERED: Ondansetron HCl 2 MG / ML 2ML Vial IV ONE (14:45)
[2024-01-03 15:17] LABS: BASOPHILS ABSOLUTE AUTO 0.03 K/mm3 (0.00-0.23); BASOPHILS PERCENT AUTO 1 % (0-2); EOSINOPHILS ABSOLUTE AUTO 0.17 K/mm3 (0.00-0.68); EOSINOPHILS PERCENT AUTO 3 % (0-6); Hematocrit 32.7 % (33.0-51.0); Hemoglobin 10.6 g/dL (11.5-16.0); IMMATURE GRAN ABSOLUTE AUTO 0.02 K/mm3 (0.00-0.10); IMMATURE GRAN PERCENT AUTO 0 % (0-1); LYMPHOCYTES ABSOLUTE AUTO 1.14 K/mm3 (0.84-5.20); LYMPHOCYTES PERCENT AUTO 18 % (21-46); MONOCYTES ABSOLUTE AUTO 0.57 K/mm3 (0.16-1.47); MONOCYTES PERCENT AUTO 9 % (4-13); Mean Corpuscular HGB 27.9 pg (26.0-34.0); Mean Corpuscular HGB Conc 32.4 g/dL (31.5-36.5); Mean Corpuscular Volume 86 fL (80-100); Mean Platelet Volume 10.1 fL (9.1-12.4); NEUTROPHILS ABSOLUTE AUTO 4.27 K/mm3 (1.96-9.15); NEUTROPHILS PERCENT AUTO 69 % (41-73); Platelet Count 282 K/mm3 (150-400); RDW Coefficient Variation 15.7 % (11.7-14.2); RDW Standard Deviation 49.2 fL (35.1-46.3)
[2024-01-03 15:44] LABS: Albumin, Blood 2.8 g/dL (3.4-5.0); Albumin/Globulin Ratio 0.7 (0.8-1.8); Bilirubin, Total 0.6 mg/dL (0.1-1.0); Bun/Creatinine Ratio 35.4 (12.0-20.0); Creatinine, Blood 1.27 mg/dL (0.40-1.00); Globulin, Blood 4.3 g/dL (2.2-4.0); Potassium, Blood 4.1 mmol/L (3.5-5.5); Total Protein, Blood 7.1 g/dL (6.4-8.2)
[2024-01-03] MEDS ORDERED: Ondansetron HCl 2 MG / ML 2ML Vial ONE (17:29)
[2024-01-03 17:35] LABS: Source, Urine Clean Catch
[2024-01-03 17:37] LABS: Appearance, Urine Clear (Clear); Bilirubin, Urine Neg (Neg); Blood, Urine Neg (Neg); Color, Urine Yellow (P-Yellow); Glucose Qualitative, Urine Neg (Neg); Ketones, Urine Neg (Neg); Leukocyte Esterase, Urine Neg (Neg); Nitrite, Urine Neg (Neg); Protein, Urine Neg (Neg); Specific Gravity, Urine 1.015 (1.003-1.022); Urobilinogen, Urine NORM (Normal)
[2024-01-03 18:30] VITALS: BP 113/49
== END 2024-01-03 18:41 | disposition home or self-care (01) ==
LOC: ER 14:30
PROVIDERS: Physician Assistant
DX: R10.32 Left lower quadrant pain (principal); R10.12 Left upper quadrant pain; D64.9 Anemia, unspecified; K57.30 Diverticulosis of large intestine without perforation or abscess without bleeding; N20.0 Calculus of kidney; I25.2 Old myocardial infarction; I11.0 Hypertensive heart disease with heart failure; I50.9 Heart failure, unspecified; E03.9 Hypothyroidism, unspecified; G47.33 Obstructive sleep apnea (adult) (pediatric); I48.91 Unspecified atrial fibrillation; M81.0 Age-related osteoporosis without current pathological fracture; Z91.011 Allergy to milk products; Z88.8 Allergy status to other drugs, medicaments and biological substances; Z91.040 Latex allergy status; Z79.891 Long term (current) use of opiate analgesic; Z79.899 Other long term (current) drug therapy
CPT/HCPCS: 74177; 80053; 81003; 83690; 85025; 96374-59; 99284-25; J2405; Q9967

== ENCOUNTER → 2024-01-10 | Outpatient (CLI) | payer MEDICARE, OTHER ==
[2024-01-11 17:05] LABS: Source, Urine Voided
[2024-01-11 17:30] LABS: Appearance, Urine Hazy (Clear); Bilirubin, Urine Neg (Neg); Blood, Urine 1+ (Neg); Glucose Qualitative, Urine Neg (Neg); Ketones, Urine Neg (Neg); Leukocyte Esterase, Urine 3+ (Neg); Nitrite, Urine Pos (Neg); Protein, Urine 2+ (Neg); Specific Gravity, Urine 1.015 (1.003-1.022); Urobilinogen, Urine NORM (Normal)
[2024-01-11 17:39] LABS: Color, Urine Pale Yellow (P-Yellow)
[2024-01-11 17:40] LABS: Bacteria Many /hpf; Red Blood Cells, Urine 0-2 /hpf (0-2); Squamous Epithelial Cells Few /hpf (Few); White Blood Cells, Urine 50-100 /hpf (0-5)
== END ==
LOC: LAB SHORT 17:02 → LAB 17:02
PROVIDERS: Internal Medicine
DX: N39.0 Urinary tract infection, site not specified (principal)
CPT/HCPCS: 81001; 87077; 87086; 87186

== ENCOUNTER 2024-04-16 16:31 | Emergency (ER) | payer MEDICARE, OTHER ==
[~2024-04-16] VITALS: Ht 162.6 cm; Wt 90.7 kg
[~2024-04-16 16:31] MED LIST changes: -FENTANYL1 EA10 TD; +METHI10 PO
[2024-04-16 16:37] VITALS: BP 134/74
[2024-04-16 17:10] LABS: BASOPHILS ABSOLUTE AUTO 0.05 K/mm3 (0.00-0.23); BASOPHILS PERCENT AUTO 1 % (0-2); EOSINOPHILS ABSOLUTE AUTO 0.16 K/mm3 (0.00-0.68); EOSINOPHILS PERCENT AUTO 2 % (0-6); Hematocrit 33.8 % (33.0-51.0); Hemoglobin 10.4 g/dL (11.5-16.0); IMMATURE GRAN ABSOLUTE AUTO 0.01 K/mm3 (0.00-0.10); IMMATURE GRAN PERCENT AUTO 0 % (0-1); LYMPHOCYTES ABSOLUTE AUTO 2.01 K/mm3 (0.84-5.20); LYMPHOCYTES PERCENT AUTO 28 % (21-46); MONOCYTES ABSOLUTE AUTO 0.54 K/mm3 (0.16-1.47); MONOCYTES PERCENT AUTO 8 % (4-13); Mean Corpuscular HGB Conc 30.8 g/dL (31.5-36.5); Mean Corpuscular Volume 88 fL (80-100); Mean Platelet Volume 9.7 fL (9.1-12.4); NEUTROPHILS ABSOLUTE AUTO 4.34 K/mm3 (1.96-9.15); NEUTROPHILS PERCENT AUTO 61 % (41-73); Platelet Count 301 K/mm3 (150-400); RDW Coefficient Variation 16.1 % (11.7-14.2); RDW Standard Deviation 51.8 fL (35.1-46.3); Red Blood Cell Count 3.85 M/mm3 (3.80-5.20); White Blood Cell Count 7.11 K/mm3 (4.00-11.30)
[2024-04-16 17:38] LABS: Albumin, Blood 2.9 g/dL (3.4-5.0); Albumin/Globulin Ratio 0.7 (0.8-1.8); Bilirubin, Total 0.3 mg/dL (0.1-1.0); Bun/Creatinine Ratio 32.1 (12.0-20.0); Calcium, Blood 8.4 mg/dL (8.5-10.1); Creatinine, Blood 0.94 mg/dL (0.40-1.00); Globulin, Blood 4.4 g/dL (2.2-4.0); Potassium, Blood 4.6 mmol/L (3.5-5.5); Total Protein, Blood 7.3 g/dL (6.4-8.2)
[2024-04-16 22:22] LABS: C-REACTIVE PROTEIN, EXT RANGE 2.32 mg/dL (0.000-0.300); Uric Acid, Blood 4.3 mg/dL (2.6-6.0)
== END 2024-04-16 22:56 | disposition home or self-care (01) ==
LOC: ER 16:31
PROVIDERS: Student in an Organized Health Care Education/Training Program
DX: M25.562 Pain in left knee (principal); I25.2 Old myocardial infarction; I11.0 Hypertensive heart disease with heart failure; I50.9 Heart failure, unspecified; E03.9 Hypothyroidism, unspecified; I48.91 Unspecified atrial fibrillation; Z88.8 Allergy status to other drugs, medicaments and biological substances; Z91.040 Latex allergy status; Z91.011 Allergy to milk products; Z79.899 Other long term (current) drug therapy; Z96.652 Presence of left artificial knee joint
CPT/HCPCS: 73560-LT; 80053; 84550; 85025; 86140; 93005; 93010; 93971; 99284-25

== ENCOUNTER → 2024-04-19 | Outpatient (CLI) | payer MEDICARE, OTHER ==
[2024-04-19 15:04] LABS: Source, Urine Voided
[2024-04-19 16:02] LABS: Appearance, Urine Cloudy (Clear); Bilirubin, Urine Neg (Neg); Blood, Urine 1+ (Neg); Color, Urine Yellow (P-Yellow); Glucose Qualitative, Urine Neg (Neg); Ketones, Urine Neg (Neg); Leukocyte Esterase, Urine 3+ (Neg); Nitrite, Urine Pos (Neg); Protein, Urine 1+ (Neg); Urobilinogen, Urine NORM (Normal)
[2024-04-19 16:14] LABS: Bacteria Many /hpf; Squamous Epithelial Cells Not Seen /hpf (Few); White Blood Cells, Urine TNTC /hpf (0-5)
== END | disposition home or self-care (01) ==
LOC: LAB SHORT 15:01
PROVIDERS: Internal Medicine
DX: N39.0 Urinary tract infection, site not specified (principal)
CPT/HCPCS: 81001; 87077; 87086; 87186

== ENCOUNTER 2024-04-21 20:19 | Inpatient (IN) | payer MEDICARE, OTHER ==
[~2024-04-21] VITALS: Ht 162.6 cm; Wt 94.6 kg
[~2024-04-21 20:19] MED LIST changes: -DESITIN DAILY136 GM; +DESITIN DAILY136 GM TOP; -DOCU100; +DOCU100 PO; -METHI10 PO; +METHIMAZOLE5 M2 PO; +Percocet 5-3251 EACH PO; -SYSTANE 0.4-0.315 ML; +SYSTANE 0.4-0.315 ML BOTHEYES
[2024-04-21 20:51] LABS: BASOPHILS ABSOLUTE AUTO 0.02 K/mm3 (0.00-0.23); BASOPHILS PERCENT AUTO 0 % (0-2); EOSINOPHILS ABSOLUTE AUTO 0.32 K/mm3 (0.00-0.68); EOSINOPHILS PERCENT AUTO 2 % (0-6); Hematocrit 34.5 % (33.0-51.0); Hemoglobin 11.1 g/dL (11.5-16.0); IMMATURE GRAN ABSOLUTE AUTO 0.08 K/mm3 (0.00-0.10); IMMATURE GRAN PERCENT AUTO 0 % (0-1); LYMPHOCYTES ABSOLUTE AUTO 1.96 K/mm3 (0.84-5.20); LYMPHOCYTES PERCENT AUTO 11 % (21-46); MONOCYTES ABSOLUTE AUTO 0.78 K/mm3 (0.16-1.47); MONOCYTES PERCENT AUTO 4 % (4-13); Mean Corpuscular HGB 27.8 pg (26.0-34.0); Mean Corpuscular HGB Conc 32.2 g/dL (31.5-36.5); Mean Corpuscular Volume 87 fL (80-100); Mean Platelet Volume 9.9 fL (9.1-12.4); NEUTROPHILS ABSOLUTE AUTO 15.17 K/mm3 (1.96-9.15); NEUTROPHILS PERCENT AUTO 83 % (41-73); Platelet Count 297 K/mm3 (150-400); RDW Standard Deviation 50.4 fL (35.1-46.3); Red Blood Cell Count 3.99 M/mm3 (3.80-5.20); White Blood Cell Count 18.33 K/mm3 (4.00-11.30)
[2024-04-21 21:05] LABS: Albumin/Globulin Ratio 0.6 (0.8-1.8); Bilirubin, Total 0.6 mg/dL (0.1-1.0); Bun/Creatinine Ratio 27.4 (12.0-20.0); Calcium, Blood 8.4 mg/dL (8.5-10.1); Creatinine, Blood 1.24 mg/dL (0.40-1.00); Globulin, Blood 4.9 g/dL (2.2-4.0); Potassium, Blood 4.6 mmol/L (3.5-5.5); Total Protein, Blood 7.9 g/dL (6.4-8.2)
[2024-04-21 21:11] LABS: CORONAVIRUS COVID-19 AG Negative (NEGATIVE); INFLUENZA A AG Negative (NEGATIVE); INFLUENZA B AG Negative (NEGATIVE)
[2024-04-21] MEDS ORDERED: Lactated Ringer's 1,000 ML IV SCH (22:45)
[2024-04-21] MEDS ORDERED: FentaNYL Citrate 50 MCG/ML 2 ML Injection IV ONE (22:50)
[2024-04-21] MEDS ORDERED: Ondansetron HCl 2 MG / ML 2ML Vial IV ONE (22:50)
[2024-04-22] MEDS ORDERED: Lactated Ringer's 1,000 ML IV SCH (00:15)
[2024-04-22 00:21] LABS: Source, Urine Clean Catch
[2024-04-22 00:24] LABS: Bilirubin, Urine Neg (Neg); Blood, Urine 1+ (Neg); Glucose Qualitative, Urine Neg (Neg); Ketones, Urine Neg (Neg); Leukocyte Esterase, Urine 3+ (Neg); Nitrite, Urine Pos (Neg); Protein, Urine 2+ (Neg); Specific Gravity, Urine 1.005 (1.003-1.022); Urobilinogen, Urine NORM (Normal)
[2024-04-22 00:31] LABS: Appearance, Urine Hazy (Clear); Color, Urine Yellow (P-Yellow)
[2024-04-22 00:32] LABS: Bacteria Many /hpf; Red Blood Cells, Urine 0-2 /hpf (0-2); Squamous Epithelial Cells Few /hpf (Few); White Blood Cells, Urine TNTC /hpf (0-5)
[2024-04-22] MEDS ORDERED: Ipratropium Bromide INH 0.02% 0.5 mg/2.5ML Vial INH SCH (00:45)
[2024-04-22] MEDS ORDERED: Albuterol 2.5 MG/3 ML VIAL INH SCH (00:45)
[2024-04-22] MEDS ORDERED: CefTRIAXone Sodium 1,000 MG in NS 100 ML IV ONE (00:50)
[2024-04-22] MEDS ORDERED: Ketorolac Tromethamine 15mg Vial IV ONE (01:15)
[2024-04-22] MEDS ORDERED: Morphine Sulfate 4 MG/1 ML Injection IV ONE (01:15)
[2024-04-22] MEDS ORDERED: Acetaminophen 500 MG Tab PO ONE (01:15)
[2024-04-22] MEDS ORDERED: Acetaminophen 325 MG TABLET PO PRN (04:25)
[2024-04-22] MEDS ORDERED: FLU VACC TS2024-25(6MOS UP)/PF 45 MCG/0.5 ML SYRINGE IM ONE (04:25)
[2024-04-22] MEDS ORDERED: Ondansetron HCl 2 MG / ML 2ML Vial IV PRN (04:25)
[2024-04-22 06:07] VITALS: BP 109/61
--- NOTE | 2024-04-22 06:50 | NUR ---
SHIFT SUMMARY PT TO UNIT FROM ER. AXO4. PLEASANT/COOPERATIVE. VSS. NS INFUSING, FLUIDS STOPPED POST BAG COMPLETION. PT REPOSITIONED, CLEANED, ATTENDS CHANGED. EDUCATED REGARDING ADMISSION PROCESS/HOSPITAL PROTOCOL. ADMISSION HX COMPLETED. DAYSHIFT RN TO COMPLETE ADMISSION ASSESMENT. PT IN BED, RESTING. CALL LIGHT WITHIN REACH, BED IN LOW POSITION.
[2024-04-22 06:54] LABS: BASOPHILS ABSOLUTE AUTO 0.03 K/mm3 (0.00-0.23); BASOPHILS PERCENT AUTO 0 % (0-2); EOSINOPHILS ABSOLUTE AUTO 0.32 K/mm3 (0.00-0.68); EOSINOPHILS PERCENT AUTO 3 % (0-6); Hematocrit 30.8 % (33.0-51.0); Hemoglobin 9.5 g/dL (11.5-16.0); IMMATURE GRAN ABSOLUTE AUTO 0.04 K/mm3 (0.00-0.10); IMMATURE GRAN PERCENT AUTO 0 % (0-1); LYMPHOCYTES ABSOLUTE AUTO 1.51 K/mm3 (0.84-5.20); LYMPHOCYTES PERCENT AUTO 13 % (21-46); MONOCYTES ABSOLUTE AUTO 0.79 K/mm3 (0.16-1.47); MONOCYTES PERCENT AUTO 7 % (4-13); Mean Corpuscular HGB 27.1 pg (26.0-34.0); Mean Corpuscular HGB Conc 30.8 g/dL (31.5-36.5); Mean Corpuscular Volume 88 fL (80-100); Mean Platelet Volume 9.5 fL (9.1-12.4); NEUTROPHILS ABSOLUTE AUTO 9.16 K/mm3 (1.96-9.15); NEUTROPHILS PERCENT AUTO 77 % (41-73); Platelet Count 226 K/mm3 (150-400); RDW Coefficient Variation 16.2 % (11.7-14.2); RDW Standard Deviation 52.3 fL (35.1-46.3); White Blood Cell Count 11.85 K/mm3 (4.00-11.30)
[2024-04-22 07:09] VITALS: BP 129/91
[2024-04-22 07:17] LABS: Albumin, Blood 2.5 g/dL (3.4-5.0); Albumin/Globulin Ratio 0.6 (0.8-1.8); Bilirubin, Total 0.4 mg/dL (0.1-1.0); Bun/Creatinine Ratio 25.2 (12.0-20.0); Calcium, Blood 7.6 mg/dL (8.5-10.1); Creatinine, Blood 1.31 mg/dL (0.40-1.00); Potassium, Blood 4.2 mmol/L (3.5-5.5); Total Protein, Blood 6.5 g/dL (6.4-8.2)
[2024-04-22] MEDS ORDERED: Lactobacil 2-S.Thermo-Bifido 1 1 Cap PO SCH (09:00)
[2024-04-22] MEDS ORDERED: Docusate Sodium 100 MG Cap PO PRN (14:30)
[2024-04-22] MEDS ORDERED: FentaNYL 12 MCG/HR Patch TOP SCH (14:42)
[2024-04-22] MEDS ORDERED: Torsemide 20 MG TAB PO SCH (14:42)
[2024-04-22] MEDS ORDERED: Sennosides 8.6 MG Tab PO PRN (14:45)
[2024-04-22] MEDS ORDERED: Peg 400/Hypromellose/Glycerin 15 DROP/ML BTL BOTHEYES PRN (14:45)
[2024-04-22] MEDS ORDERED: NITR100CA PO (15:08)
[2024-04-22 15:51] LABS: Adenovirus Not Detected (NOT DETECT); Coronavirus 229E Not Detected (NOT DETECT); Coronavirus HKU1 Not Detected (NOT DETECT); Coronavirus NL63 Not Detected (NOT DETECT); Coronavirus OC43 Not Detected (NOT DETECT); Human Metapneumovirus Not Detected (NOT DETECT); Human Rhinovirus/Enterovirus Not Detected (NOT DETECT); Influenza A/2009-H1 Not Detected (NOT DETECT); Influenza A/H1 Not Detected (NOT DETECT); Influenza A/H3 Not Detected (NOT DETECT); Influenza B Not Detected (NOT DETECT); Parainfluenza Virus 1 Not Detected (NOT DETECT); Parainfluenza Virus 2 Not Detected (NOT DETECT); Parainfluenza Virus 3 Not Detected (NOT DETECT); Parainfluenza Virus 4 Not Detected (NOT DETECT); SARS-Cov-2 (COVID-19), BioFire Not Detected (NOT DETECT)
[2024-04-22 15:52] LABS: Bordetella pertussis Not Detected (NOT DETECT); Chlamydophila pneumoniae Not Detected (NOT DETECT); Mycoplasma pneumoniae Not Detected (NOT DETECT); Respiratory Syncytial Virus Not Detected (NOT DETECT)
[2024-04-22 15:55] VITALS: BP 147/50
[2024-04-22] MEDS ORDERED: rOPINIRole HCl 1 MG Tab PO SCH ×2 (18:00→21:00)
--- NOTE | 2024-04-22 18:08 | NUR ---
SHIFT SUMMARY; ASSUMED CARE AT 0700. A/A/OX4 DURING SHIFT. PLEASANT AND COOPERATIVE WITH CARE. REPOSITIONS SELF IN BED, VSS, 2L 02 VIA NC TO MAINTAIN SATS >94%. PURWICK IN PLACE DRAINING JAE URINE. HEELS ELEVATED DURING SHIFT. ATTENDS CHANGE PRN. NO ACUTE CHANGES, WILL CONTINUE TO MONITOR UNTIL REPORT GIVEN TO ONCOMING NOC RN.
[2024-04-22 19:22] VITALS: BP 129/81
[2024-04-22] MEDS ORDERED: Gabapentin 100 MG Cap PO SCH (21:00)
[2024-04-22] MEDS ORDERED: DULoxetine HCL 60 MG Capsule DR PO SCH (21:00)
[2024-04-22] MEDS ORDERED: CefTRIAXone Sodium 1,000 MG in NS 100 ML IV SCH (21:00)
[2024-04-22] MEDS ORDERED: GuaiFENesin 100 MG/5 ML 5ML UDC PO PRN (23:00)
[2024-04-22 23:26] VITALS: BP 117/62
[2024-04-23 04:07] VITALS: BP 135/93
[2024-04-23 04:18] LABS: BASOPHILS ABSOLUTE AUTO 0.02 K/mm3 (0.00-0.23); BASOPHILS PERCENT AUTO 0 % (0-2); EOSINOPHILS ABSOLUTE AUTO 0.58 K/mm3 (0.00-0.68); EOSINOPHILS PERCENT AUTO 6 % (0-6); Hematocrit 30.7 % (33.0-51.0); Hemoglobin 9.4 g/dL (11.5-16.0); IMMATURE GRAN ABSOLUTE AUTO 0.03 K/mm3 (0.00-0.10); IMMATURE GRAN PERCENT AUTO 0 % (0-1); LYMPHOCYTES ABSOLUTE AUTO 1.16 K/mm3 (0.84-5.20); LYMPHOCYTES PERCENT AUTO 11 % (21-46); MONOCYTES PERCENT AUTO 4 % (4-13); Mean Corpuscular HGB 26.9 pg (26.0-34.0); Mean Corpuscular HGB Conc 30.6 g/dL (31.5-36.5); Mean Corpuscular Volume 88 fL (80-100); Mean Platelet Volume 9.9 fL (9.1-12.4); NEUTROPHILS PERCENT AUTO 79 % (41-73); Platelet Count 254 K/mm3 (150-400); RDW Coefficient Variation 16.1 % (11.7-14.2); RDW Standard Deviation 51.8 fL (35.1-46.3); White Blood Cell Count 10.49 K/mm3 (4.00-11.30)
[2024-04-23 05:01] LABS: Anion Gap 7 mmol/L (3-11); Blood Urea Nitrogen 32 mg/dL (8-24); Bun/Creatinine Ratio 25.8 (12.0-20.0); CO2, Blood 26 mmol/L (21-32); Calcium, Blood 7.5 mg/dL (8.5-10.1); Chloride, Blood 109 mmol/L (98-108); Creatinine, Blood 1.24 mg/dL (0.40-1.00); Free Thyroxine 1.31 ng/dL (0.70-1.60); Glomerular Filtration Rate 45 (60-); Glucose, Blood 80 mg/dL (70-99); Potassium, Blood 4.9 mmol/L (3.5-5.5); Prostate Specific Antigen <0.010 ng/mL; Sodium, Blood 137 mmol/L (136-145); Triiodothyronine, Free 1.64 pg/mL (2.18-3.98)
[2024-04-23] MEDS ORDERED: Omeprazole 20 MG CapCR PO SCH (06:00)
--- NOTE | 2024-04-23 06:32 | NUR ---
SHIFT SUMMARY PT HERE FOR SEPSIS SECONDARY TO UTI. IV ABX GIVEN PER MAR THROUGHOUT NIGHT. PT ALSO ARRIVED WITH SOB, CT NEGATIVE. AND PCR NEGATIVE. PTS VSS AND CONTINUES TO UTILIZE 2L NC FOR COMFORT WHILE SLEEPING. PT REQUESTING FOR COUGH MEDICINE. NOTIFIED AND MICHAEL ORDERED PRN. GIVEN WITH GOOD RELIEF. NO FURTHER QUESTIONS OR CONCERNS AT THIS TIME. WILL REPORT TO ONCOMING NURSE.
[2024-04-23 07:34] VITALS: BP 118/51
[2024-04-23] MEDS ORDERED: Ferrous Sulfate 325 MG Tab PO SCH (09:00)
[2024-04-23] MEDS ORDERED: methIMAzole 5 MG TABLET PO SCH (09:00)
[2024-04-23] MEDS ORDERED: GALANTAMINE HYDROBROMIDE 8 MG PO SCH (09:00)
[2024-04-23] MEDS ORDERED: Allopurinol 100 MG Tab PO SCH (09:00)
[2024-04-23] MEDS ORDERED: Torsemide 20 MG TAB PO SCH (09:00)
[2024-04-23] MEDS ORDERED: Enoxaparin 40 MG/0.4 ML SYR SC SCH (09:00)
[2024-04-23] MEDS ORDERED: Fluticasone 0.05% Nasal Spray SCH (09:00)
--- NOTE | 2024-04-23 13:27 | NUR ---
Patient is sitting on a chair and alert. Patient is pleasant and generous in the conversation. She tells me about her medical issues, her family and about how proud she is of her daughter. She shares about her life at [facility] and what is great about it and she shares the struggles of not having her spouse live with her there. She expresses her concerns for him and his fading health. I provided therapeutic listening and prayer. Patient responded well and showed signs of an elevated mood. I will continue to remain available to patient and family.
--- NOTE | 2024-04-23 17:36 | NUR ---
SHIFT SUMMARY; ASSUMED CARE AT 0700. A/A/OX4. UP TO CHAIR TODAY FOR MEALS WITH 2 PERSON ASSIST. PURWICK REMOVED AT START OF SHIFT AND USES BSC. BED BATH TODAY AND LINEN CHANGE. VSS, RA WITH SATS MAINTAINED >94%. L/S CLEAR. WET COUGH AT TIMES. REPORTS FEELING MUCH BETTER FROM PREVIOUS SHIFT. NO ACUTE CHANGES, WILL CONTINUE TO MONITOR AND TREAT UNTIL REPORTING OFF TO NOC SHIFT RN.
[2024-04-23] MEDS ORDERED: Azithromycin 250 MG Tab PO SCH (19:00)
[2024-04-23 19:20] VITALS: BP 121/58
[2024-04-23] MEDS ORDERED: Calcium Carbonate 500 MG Tab Chew PO PRN (20:45)
[2024-04-24 03:17] VITALS: BP 142/58
--- NOTE | 2024-04-24 04:45 | NUR ---
SHIFT SUMMARY NO ACUTE CHANGES OVERNIGHT. VSS ON RA >92%. PT C/O ABD DISCOMFORT, TUMS ORDERED AND GIVEN WITH GOOD RELIEF. X1 BM USING BSC WITH X1A. PT LATER IN THE EVENING REPORTED BACK PAIN, PRN TYLENOL GIVEN WITH GOOD RELIEF. NO FURTHER QUESTIONS OR CONCERNS AT THIS TIME.
[2024-04-24 05:10] LABS: BASOPHILS ABSOLUTE AUTO 0.02 K/mm3 (0.00-0.23); BASOPHILS PERCENT AUTO 0 % (0-2); EOSINOPHILS ABSOLUTE AUTO 0.46 K/mm3 (0.00-0.68); EOSINOPHILS PERCENT AUTO 8 % (0-6); Hematocrit 30.4 % (33.0-51.0); Hemoglobin 9.5 g/dL (11.5-16.0); IMMATURE GRAN ABSOLUTE AUTO 0.02 K/mm3 (0.00-0.10); IMMATURE GRAN PERCENT AUTO 0 % (0-1); LYMPHOCYTES ABSOLUTE AUTO 1.44 K/mm3 (0.84-5.20); LYMPHOCYTES PERCENT AUTO 24 % (21-46); MONOCYTES ABSOLUTE AUTO 0.42 K/mm3 (0.16-1.47); MONOCYTES PERCENT AUTO 7 % (4-13); Mean Corpuscular HGB 27.1 pg (26.0-34.0); Mean Corpuscular HGB Conc 31.3 g/dL (31.5-36.5); Mean Corpuscular Volume 87 fL (80-100); Mean Platelet Volume 9.6 fL (9.1-12.4); NEUTROPHILS ABSOLUTE AUTO 3.74 K/mm3 (1.96-9.15); NEUTROPHILS PERCENT AUTO 61 % (41-73); Platelet Count 265 K/mm3 (150-400); RDW Coefficient Variation 15.9 % (11.7-14.2); RDW Standard Deviation 50.6 fL (35.1-46.3)
[2024-04-24 05:30] LABS: Albumin, Blood 2.4 g/dL (3.4-5.0); Anion Gap 8 mmol/L (3-11); Blood Urea Nitrogen 25 mg/dL (8-24); Bun/Creatinine Ratio 23.1 (12.0-20.0); CO2, Blood 25 mmol/L (21-32); Calcium, Blood 7.8 mg/dL (8.5-10.1); Chloride, Blood 109 mmol/L (98-108); Creatinine, Blood 1.08 mg/dL (0.40-1.00); Glomerular Filtration Rate 53 (60-); Glucose, Blood 90 mg/dL (70-99); Phosphorus, Blood 2.2 mg/dL (2.5-4.9); Potassium, Blood 4.5 mmol/L (3.5-5.5); Sodium, Blood 137 mmol/L (136-145)
[2024-04-24 07:29] VITALS: BP 147/62
[2024-04-24] MEDS ORDERED: AZIT250 PO (10:42)
[2024-04-24] MEDS ORDERED: SULTRIDS PO (10:43)
[2024-04-24] MEDS ORDERED: PROBIOTIC1 EA13 PO (10:47)
[2024-04-24] MEDS ORDERED: GUAI600T33 PO (11:23)
[2024-04-26] MEDS ORDERED: ACETAMINOPHEN500 M2 PO (14:05)
[2024-04-26] MEDS ORDERED: ALBU90OI INH (14:06)
[2024-04-26] MEDS ORDERED: LOPE2C PO (14:07)
[2024-04-26] MEDS ORDERED: SULTRIDS PO (14:09)
[2024-04-28] MEDS ORDERED: SULFAMETHOXAZO1 EAC1 PO (12:02)
[2024-04-28] MEDS ORDERED: BENZ100A PO (12:04)
[2024-04-28] MEDS ORDERED: DOCUZEN 8.6-501 EACH PO (12:04)
[2024-04-28] MEDS ORDERED: Deltasone 10 mg10 MG PO (12:08)
[2024-04-28] MEDS ORDERED: BUME1 PO (12:10)
== END 2024-04-24 11:54 | disposition home health service (06) | DRG 871 ==
LOC: ER 20:19 → ERHOLD 04-22 04:20 → PCU 04-22 04:20
PROVIDERS: Family Medicine; Student in an Organized Health Care Education/Training Program; ADMIT Student in an Organized Health Care Education/Training Program
PROC: 3E03329 Introduction of Other Anti-infective into Peripheral Vein, Percutaneous Approach (ICD-10-PCS; principal; 2024-04-22)
PROC: 5A09457 Assistance with Respiratory Ventilation, 24-96 Consecutive Hours, Continuous Positive Airway Pressure (ICD-10-PCS; 2024-04-22)
DX: A41.9 Sepsis, unspecified organism (principal); J18.9 Pneumonia, unspecified organism; J96.01 Acute respiratory failure with hypoxia; E87.1 Hypo-osmolality and hyponatremia; N39.0 Urinary tract infection, site not specified; I13.0 Hypertensive heart and chronic kidney disease with heart failure and stage 1 through stage 4 chronic kidney disease, or unspecified chronic kidney disease; I50.32 Chronic diastolic (congestive) heart failure; E87.5 Hyperkalemia; I48.91 Unspecified atrial fibrillation; G47.33 Obstructive sleep apnea (adult) (pediatric); I25.10 Atherosclerotic heart disease of native coronary artery without angina pectoris; N18.30 Chronic kidney disease, stage 3 unspecified; D63.1 Anemia in chronic kidney disease; G25.81 Restless legs syndrome; E05.90 Thyrotoxicosis, unspecified without thyrotoxic crisis or storm; M19.90 Unspecified osteoarthritis, unspecified site; F32.A Depression, unspecified; M81.0 Age-related osteoporosis without current pathological fracture; X58.XXXD Exposure to other specified factors, subsequent encounter; S91.002D Unspecified open wound, left ankle, subsequent encounter; Z90.49 Acquired absence of other specified parts of digestive tract; Z98.890 Other specified postprocedural states; Z91.011 Allergy to milk products; Z88.8 Allergy status to other drugs, medicaments and biological substances; Z91.040 Latex allergy status; Z79.899 Other long term (current) drug therapy; Z79.51 Long term (current) use of inhaled steroids; Z79.891 Long term (current) use of opiate analgesic; I25.2 Old myocardial infarction; Z28.29 Immunization not carried out because of patient decision for other reason
CPT/HCPCS: 0202U; 36415; 71045; 71260; 74177; 80048; 80053; 80069; 81001; 82947; 83605; 83735; 83880; 84153; 84439; 84443; 84481; 84484; 85025; 87040; 87428-QW; 93005; 93010; 93306; 93970; 94644; 94645; 94660; 94664; 94762; 96374; 96375; 99285-25; A9270; J0696; J1650; J1885; J2270; J2405; J3010; J7120; Q9967

== ENCOUNTER 2024-08-05 14:41 | Emergency (ER) | payer OTHER ==
[~2024-08-05] VITALS: Ht 165.1 cm; Wt 90.7 kg
[~2024-08-05 14:41] MED LIST changes: +ACETAMINOPHEN500 M2 PO; +ALBU90OI INH; +AZIT250 PO; +BENZ100A PO; +BUME1 PO; +DOCUZEN 8.6-501 EACH PO; +Deltasone 10 mg10 MG PO; +GUAI600T33 PO; +LOPE2C PO; +PROBIOTIC1 EA13 PO; +SULFAMETHOXAZO1 EAC1 PO; +SULTRIDS PO
[2024-08-05 15:27] LABS: Source, Urine Straight Cath
[2024-08-05 15:32] LABS: BASOPHILS ABSOLUTE AUTO 0.03 K/mm3 (0.00-0.23); BASOPHILS PERCENT AUTO 0 % (0-2); EOSINOPHILS ABSOLUTE AUTO 0.09 K/mm3 (0.00-0.68); EOSINOPHILS PERCENT AUTO 1 % (0-6); Hematocrit 34.9 % (33.0-51.0); Hemoglobin 11.2 g/dL (11.5-16.0); IMMATURE GRAN ABSOLUTE AUTO 0.01 K/mm3 (0.00-0.10); IMMATURE GRAN PERCENT AUTO 0 % (0-1); LYMPHOCYTES ABSOLUTE AUTO 1.67 K/mm3 (0.84-5.20); LYMPHOCYTES PERCENT AUTO 25 % (21-46); MONOCYTES PERCENT AUTO 9 % (4-13); Mean Corpuscular HGB 27.9 pg (26.0-34.0); Mean Corpuscular HGB Conc 32.1 g/dL (31.5-36.5); Mean Corpuscular Volume 87 fL (80-100); NEUTROPHILS ABSOLUTE AUTO 4.36 K/mm3 (1.96-9.15); NEUTROPHILS PERCENT AUTO 65 % (41-73); Platelet Count 225 K/mm3 (150-400); RDW Standard Deviation 51.4 fL (35.1-46.3); Red Blood Cell Count 4.01 M/mm3 (3.80-5.20); White Blood Cell Count 6.76 K/mm3 (4.00-11.30)
[2024-08-05] MEDS ORDERED: COLCHICINE0.6 MG (15:32)
[2024-08-05] MEDS ORDERED: COLCHICINE0.6 MG PO (15:32)
[2024-08-05 15:39] LABS: Appearance, Urine Hazy (Clear); Bilirubin, Urine Neg (Neg); Blood, Urine Neg (Neg); Glucose Qualitative, Urine Neg (Neg); Ketones, Urine Neg (Neg); Leukocyte Esterase, Urine 2+ (Neg); Nitrite, Urine Pos (Neg); Protein, Urine 2+ (Neg); Urobilinogen, Urine NORM (Normal)
[2024-08-05 15:46] LABS: Albumin, Blood 3.2 g/dL (3.4-5.0); Albumin/Globulin Ratio 0.8 (0.8-1.8); Bilirubin, Total 0.3 mg/dL (0.1-1.0); Bun/Creatinine Ratio 29.7 (12.0-20.0); Creatinine, Blood 1.38 mg/dL (0.40-1.00); Globulin, Blood 4.2 g/dL (2.2-4.0); Potassium, Blood 4.2 mmol/L (3.5-5.5); Total Protein, Blood 7.4 g/dL (6.4-8.2)
[2024-08-05 15:50] LABS: Bacteria Many /hpf; Color, Urine Pale Yellow (P-Yellow); Mucus Light (0-Heavy); Red Blood Cells, Urine 0-2 /hpf (0-2); Squamous Epithelial Cells Rare /hpf (Few); Transitional Epithelial Cells Rare /hpf (0-Rare); White Blood Cells, Urine 50-100 /hpf (0-5)
[2024-08-05 15:51] LABS: Hyaline Casts 0-2 /lpf (0-2)
[2024-08-05 15:54] LABS: U Oxycodone Screen DETECTED
[2024-08-05 15:55] LABS: U Amphetamine Screen Not Detected; U Barbituate Screen Not Detected; U Benzodiazapine Screen Not Detected; U Buprenorphine Screen Not Detected; U Cannabinoids Screen Not Detected; U Cocaine Screen Not Detected; U Methadone Screen Not Detected; U Methamphetamine Screen Not Detected; U Opiates Screen Not Detected; U Phencyclidine Screen Not Detected
[2024-08-05 16:00] VITALS: BP 149/94
[2024-08-05] MEDS ORDERED: CefTRIAXone Sodium 1,000 MG in NS 100 ML IV ONE (16:00)
[2024-08-05] MEDS ORDERED: Keflex500 MG PO (16:05)
== END 2024-08-05 17:33 | disposition home or self-care (01) ==
LOC: ER 14:41
PROVIDERS: Emergency Medicine
DX: N39.0 Urinary tract infection, site not specified (principal); R41.0 Disorientation, unspecified; R44.1 Visual hallucinations; R44.0 Auditory hallucinations; I25.2 Old myocardial infarction; I11.0 Hypertensive heart disease with heart failure; I50.9 Heart failure, unspecified; E03.9 Hypothyroidism, unspecified; G47.33 Obstructive sleep apnea (adult) (pediatric); I48.91 Unspecified atrial fibrillation; M81.0 Age-related osteoporosis without current pathological fracture; Z91.011 Allergy to milk products; Z88.8 Allergy status to other drugs, medicaments and biological substances; Z91.040 Latex allergy status; Z79.899 Other long term (current) drug therapy
CPT/HCPCS: 51701; 80053; 81001; 85025; 87077; 87086; 87186; 93005; 93010; 96374; 99285-25; J0696

== ENCOUNTER 2024-08-08 14:56 | Emergency (ER) | payer MEDICARE, OTHER ==
[~2024-08-08] VITALS: Ht 162.6 cm; Wt 90.7 kg
[~2024-08-08 14:56] MED LIST changes: +COLCHICINE0.6 MG; +Keflex500 MG PO
[2024-08-08 15:04] VITALS: BP 114/55
[2024-08-08 15:45] LABS: BASOPHILS ABSOLUTE AUTO 0.01 K/mm3 (0.00-0.23); BASOPHILS PERCENT AUTO 0 % (0-2); EOSINOPHILS ABSOLUTE AUTO 0.15 K/mm3 (0.00-0.68); EOSINOPHILS PERCENT AUTO 3 % (0-6); Hematocrit 32.4 % (33.0-51.0); Hemoglobin 10.1 g/dL (11.5-16.0); IMMATURE GRAN ABSOLUTE AUTO 0.03 K/mm3 (0.00-0.10); IMMATURE GRAN PERCENT AUTO 1 % (0-1); LYMPHOCYTES ABSOLUTE AUTO 1.52 K/mm3 (0.84-5.20); LYMPHOCYTES PERCENT AUTO 26 % (21-46); MONOCYTES ABSOLUTE AUTO 0.62 K/mm3 (0.16-1.47); MONOCYTES PERCENT AUTO 10 % (4-13); Mean Corpuscular HGB 27.7 pg (26.0-34.0); Mean Corpuscular HGB Conc 31.2 g/dL (31.5-36.5); Mean Corpuscular Volume 89 fL (80-100); Mean Platelet Volume 10.5 fL (9.1-12.4); NEUTROPHILS ABSOLUTE AUTO 3.62 K/mm3 (1.96-9.15); NEUTROPHILS PERCENT AUTO 61 % (41-73); Platelet Count 215 K/mm3 (150-400); RDW Standard Deviation 52.5 fL (35.1-46.3); Red Blood Cell Count 3.65 M/mm3 (3.80-5.20); White Blood Cell Count 5.95 K/mm3 (4.00-11.30)
[2024-08-08 15:53] LABS: Albumin, Blood 2.6 g/dL (3.4-5.0); Albumin/Globulin Ratio 0.7 (0.8-1.8); Bilirubin, Total 0.3 mg/dL (0.1-1.0); Bun/Creatinine Ratio 27.2 (12.0-20.0); Calcium, Blood 8.7 mg/dL (8.5-10.1); Creatinine, Blood 1.25 mg/dL (0.40-1.00); Globulin, Blood 3.7 g/dL (2.2-4.0); Potassium, Blood 4.2 mmol/L (3.5-5.5); Total Protein, Blood 6.3 g/dL (6.4-8.2)
[2024-08-08 16:13] LABS: Source, Urine Clean Catch
[2024-08-08 16:33] LABS: Appearance, Urine Clear (Clear); Bilirubin, Urine Neg (Neg); Blood, Urine Neg (Neg); Glucose Qualitative, Urine Neg (Neg); Ketones, Urine Neg (Neg); Leukocyte Esterase, Urine Neg (Neg); Nitrite, Urine Neg (Neg); Protein, Urine 1+ (Neg); Specific Gravity, Urine 1.015 (1.003-1.022); Urobilinogen, Urine NORM (Normal)
[2024-08-08 16:57] LABS: Color, Urine Pale Yellow (P-Yellow)
== END 2024-08-08 19:30 | disposition home or self-care (01) ==
LOC: ER 14:56
PROVIDERS: Student in an Organized Health Care Education/Training Program
DX: M79.605 Pain in left leg (principal); R10.9 Unspecified abdominal pain; I25.2 Old myocardial infarction; I50.9 Heart failure, unspecified; I11.0 Hypertensive heart disease with heart failure; Z96.652 Presence of left artificial knee joint; Z91.011 Allergy to milk products; Z91.040 Latex allergy status; Z88.8 Allergy status to other drugs, medicaments and biological substances; Z79.899 Other long term (current) drug therapy
CPT/HCPCS: 80053; 83690; 85025; 99284

== ENCOUNTER → 2024-08-24 | Outpatient (CLI) | payer MEDICARE, OTHER ==
[2024-08-24 18:52] LABS: Appearance, Urine Cloudy (Clear); Bilirubin, Urine Neg (Neg); Blood, Urine 1+ (Neg); Glucose Qualitative, Urine Neg (Neg); Ketones, Urine Neg (Neg); Leukocyte Esterase, Urine 3+ (Neg); Nitrite, Urine Pos (Neg); Protein, Urine 2+ (Neg); Specific Gravity, Urine 1.015 (1.003-1.022); Urobilinogen, Urine NORM (Normal)
[2024-08-24 19:46] LABS: Color, Urine Pale Yellow (P-Yellow)
[2024-08-24 19:47] LABS: Bacteria Many /hpf; Mucus Light (0-Heavy); Red Blood Cells, Urine 0-2 /hpf (0-2); Squamous Epithelial Cells Rare /hpf (Few); Transitional Epithelial Cells Rare /hpf (0-Rare); White Blood Cells, Urine TNTC /hpf (0-5)
== END | disposition home or self-care (01) ==
LOC: LAB 18:05 → LAB SHORT 18:05
PROVIDERS: Internal Medicine
DX: N39.0 Urinary tract infection, site not specified (principal)
CPT/HCPCS: 81001; 87077; 87086; 87186

== ENCOUNTER 2024-10-19 00:01 | Emergency (ER) | payer MEDICARE, OTHER ==
[~2024-10-19] VITALS: Ht 162.6 cm; Wt 85.3 kg
[2024-10-19] MEDS ORDERED: Prochlorperazine Edisylate 10 mg Vial IV ONE (00:15)
[2024-10-19] MEDS ORDERED: NS 1,000 ML IV SCH (00:15)
[2024-10-19 00:38] LABS: BASOPHILS ABSOLUTE AUTO 0.03 K/mm3 (0.00-0.23); BASOPHILS PERCENT AUTO 0 % (0-2); EOSINOPHILS ABSOLUTE AUTO 0.16 K/mm3 (0.00-0.68); EOSINOPHILS PERCENT AUTO 2 % (0-6); Hematocrit 34.6 % (33.0-51.0); Hemoglobin 10.8 g/dL (11.5-16.0); IMMATURE GRAN ABSOLUTE AUTO 0.02 K/mm3 (0.00-0.10); IMMATURE GRAN PERCENT AUTO 0 % (0-1); LYMPHOCYTES ABSOLUTE AUTO 2.03 K/mm3 (0.84-5.20); LYMPHOCYTES PERCENT AUTO 30 % (21-46); MONOCYTES ABSOLUTE AUTO 0.53 K/mm3 (0.16-1.47); MONOCYTES PERCENT AUTO 8 % (4-13); Mean Corpuscular HGB Conc 31.2 g/dL (31.5-36.5); Mean Corpuscular Volume 88 fL (80-100); NEUTROPHILS ABSOLUTE AUTO 4.07 K/mm3 (1.96-9.15); NEUTROPHILS PERCENT AUTO 60 % (41-73); NRBC ABSOLUTE 0.00 K/mm3 (0.00-0.02); NRBC Auto 0.0 /100 WBC (0.0-0.2); Platelet Count 301 K/mm3 (150-400); RDW Coefficient Variation 15.9 % (11.7-14.2); RDW Standard Deviation 51.5 fL (35.1-46.3)
[2024-10-19 01:04] LABS: Source, Urine Clean Catch
[2024-10-19 01:09] LABS: Thyroid Stimulating Hormone 1.88 uIU/mL (0.360-4.800)
[2024-10-19 01:10] LABS: Alanine Aminotransfer (ALT/SGP 23.0 U/L (12-78); Albumin, Blood 2.7 g/dL (3.4-5.0); Albumin/Globulin Ratio 0.6 (0.8-1.8); Anion Gap 7.0 mmol/L (3-11); Aspartate Aminotrans (AST/SGOT 25.0 U/L (12-37); Bilirubin, Total 0.2 mg/dL (0.1-1.0); Blood Urea Nitrogen 28.0 mg/dL (8-24); CO2, Blood 26.0 mmol/L (21-32); Calcium, Blood 7.5 mg/dL (8.5-10.1); Chloride, Blood 107.0 mmol/L (98-108); Creatinine, Blood 1.1 mg/dL (0.40-1.00); Globulin, Blood 4.2 g/dL (2.2-4.0); Glucose, Blood 166.0 mg/dL (70-99); Potassium, Blood 4.1 mmol/L (3.5-5.5); Sodium, Blood 136.0 mmol/L (136-145); Total Protein, Blood 6.9 g/dL (6.4-8.2)
[2024-10-19 01:46] LABS: Bilirubin, Urine Neg (Neg); Glucose Qualitative, Urine Neg (Neg); Ketones, Urine Neg (Neg); Leukocyte Esterase, Urine Neg (Neg); Protein, Urine 2+ (Neg); Specific Gravity, Urine 1.020 (1.003-1.022); Urobilinogen, Urine NORM (Normal)
[2024-10-19 01:55] LABS: Color, Urine Yellow (P-Yellow)
[2024-10-19 01:56] LABS: Red Blood Cells, Urine 0-2 /hpf (0-2); White Blood Cells, Urine 0-2 /hpf (0-5)
[2024-10-19 03:30] VITALS: BP 189/101
== END 2024-10-19 03:48 | disposition home or self-care (01) ==
LOC: ER 00:01
PROVIDERS: Emergency Medicine
DX: R51.9 Headache, unspecified (principal); E03.9 Hypothyroidism, unspecified; G47.33 Obstructive sleep apnea (adult) (pediatric); I25.2 Old myocardial infarction; I11.0 Hypertensive heart disease with heart failure; I50.9 Heart failure, unspecified; Z79.899 Other long term (current) drug therapy; Z79.51 Long term (current) use of inhaled steroids; Z91.040 Latex allergy status; Z91.011 Allergy to milk products; Z88.8 Allergy status to other drugs, medicaments and biological substances
CPT/HCPCS: 70450; 70496; 70498; 71045; 80053; 81001; 84439; 84443; 84484; 85025; 93005; 93010; 96361; 96374-59; 99285-25; A9270; J0780; J7030; Q9967

== ENCOUNTER 2025-01-05 08:44 | Emergency (ER) | payer MEDICARE, OTHER ==
[~2025-01-05] VITALS: Ht 165.1 cm; Wt 90.7 kg
[2025-01-05] MEDS ORDERED: NS 1,000 ML IV SCH (09:40)
[2025-01-05 09:56] LABS: BASOPHILS ABSOLUTE AUTO 0.06 K/mm3 (0.00-0.23); BASOPHILS PERCENT AUTO 1 % (0-2); EOSINOPHILS ABSOLUTE AUTO 0.48 K/mm3 (0.00-0.68); EOSINOPHILS PERCENT AUTO 7 % (0-6); Hematocrit 37.5 % (33.0-51.0); Hemoglobin 11.8 g/dL (11.5-16.0); IMMATURE GRAN ABSOLUTE AUTO 0.01 K/mm3 (0.00-0.10); IMMATURE GRAN PERCENT AUTO 0 % (0-1); LYMPHOCYTES ABSOLUTE AUTO 1.64 K/mm3 (0.84-5.20); LYMPHOCYTES PERCENT AUTO 24 % (21-46); MONOCYTES ABSOLUTE AUTO 0.46 K/mm3 (0.16-1.47); MONOCYTES PERCENT AUTO 7 % (4-13); Mean Corpuscular HGB Conc 31.5 g/dL (31.5-36.5); Mean Corpuscular Volume 91 fL (80-100); NEUTROPHILS ABSOLUTE AUTO 4.09 K/mm3 (1.96-9.15); NEUTROPHILS PERCENT AUTO 61 % (41-73); NRBC ABSOLUTE 0.00 K/mm3 (0.00-0.02); NRBC Auto 0.0 /100 WBC (0.0-0.2); Platelet Count 260 K/mm3 (150-400); RDW Coefficient Variation 14.5 % (11.7-14.2); RDW Standard Deviation 47.8 fL (35.1-46.3)
[2025-01-05 10:15] VITALS: BP 129/55
[2025-01-05 10:25] LABS: Alanine Aminotransfer (ALT/SGP 24.0 U/L (12-78); Albumin, Blood 3.0 g/dL (3.4-5.0); Albumin/Globulin Ratio 0.8 (0.8-1.8); Anion Gap 5.0 mmol/L (3-11); Aspartate Aminotrans (AST/SGOT 28.0 U/L (12-37); Bilirubin, Total 0.4 mg/dL (0.1-1.0); Blood Urea Nitrogen 27.0 mg/dL (8-24); CO2, Blood 30.0 mmol/L (21-32); Calcium, Blood 8.5 mg/dL (8.5-10.1); Chloride, Blood 105.0 mmol/L (98-108); Creatinine, Blood 1.07 mg/dL (0.40-1.00); Globulin, Blood 4.0 g/dL (2.2-4.0); Glucose, Blood 92.0 mg/dL (70-99); Potassium, Blood 4.4 mmol/L (3.5-5.5); Sodium, Blood 136.0 mmol/L (136-145); Thyroid Stimulating Hormone 1.84 uIU/mL (0.360-4.800); Total Protein, Blood 7.0 g/dL (6.4-8.2)
[2025-01-05 11:40] LABS: Source, Urine Clean Catch
[2025-01-05 11:43] LABS: Bilirubin, Urine Neg (Neg); Color, Urine Yellow (P-Yellow); Glucose Qualitative, Urine Neg (Neg); Ketones, Urine Neg (Neg); Leukocyte Esterase, Urine Neg (Neg); Protein, Urine Neg (Neg); Specific Gravity, Urine 1.010 (1.003-1.022); Urobilinogen, Urine NORM (Normal)
[2025-01-05] MEDS ORDERED: Ondansetron HCl 2 MG / ML 2ML Vial IV ONE (12:00)
[2025-01-05] MEDS ORDERED: HYDROmorphone HCl/Pf 1MG SYR IV ONE (12:00)
[2025-01-05] MEDS ORDERED: OLANZAPINE2.5 M1 PO (12:44)
[2025-01-05] MEDS ORDERED: ONDA4ODT MM (12:44)
== END 2025-01-05 13:20 | disposition home or self-care (01) ==
LOC: ER 08:44
PROVIDERS: Student in an Organized Health Care Education/Training Program
DX: K52.9 Noninfective gastroenteritis and colitis, unspecified (principal); K57.30 Diverticulosis of large intestine without perforation or abscess without bleeding; R63.0 Anorexia; E03.9 Hypothyroidism, unspecified; G47.33 Obstructive sleep apnea (adult) (pediatric); I11.0 Hypertensive heart disease with heart failure; I50.9 Heart failure, unspecified; I25.2 Old myocardial infarction; Z79.51 Long term (current) use of inhaled steroids; Z79.899 Other long term (current) drug therapy; Z91.040 Latex allergy status; Z91.0110 Allergy to milk products, unspecified; Z88.8 Allergy status to other drugs, medicaments and biological substances
CPT/HCPCS: 74177; 80053; 81003; 83690; 84443; 84484; 85025; 96361; 96374-59; 96375; 99284-25; J1171; J2405; J7030; Q9967

== ENCOUNTER → 2025-02-11 | Outpatient (CLI) | payer MEDICARE, OTHER ==
[~2025-02-11] MED LIST changes: +OLANZAPINE2.5 M1 PO; +ONDA4ODT MM
[2025-02-12 12:02] LABS: Source, Urine Voided
[2025-02-12 13:08] LABS: Bilirubin, Urine Neg (Neg); Color, Urine Yellow (P-Yellow); Glucose Qualitative, Urine Neg (Neg); Ketones, Urine Neg (Neg); Leukocyte Esterase, Urine Neg (Neg); Protein, Urine 2+ (Neg); Specific Gravity, Urine 1.015 (1.003-1.022); Urobilinogen, Urine NORM (Normal)
[2025-02-12 13:28] LABS: Red Blood Cells, Urine 0-2 /hpf (0-2); White Blood Cells, Urine 0-2 /hpf (0-5)
== END | disposition home or self-care (01) ==
LOC: LAB 18:30 → LAB SHORT 18:30
PROVIDERS: Internal Medicine
DX: N39.0 Urinary tract infection, site not specified (principal)
CPT/HCPCS: 81001